=== PATIENT | male | born 1945 | race Caucasian/White ===

== ENCOUNTER 2017-11-04 11:44 | Emergency (ER) | payer OTHER, MEDICARE ==
--- OUTSIDE RECORDS SUMMARY | 2017-11-04 11:46 | XMS REPORT | Clinical Summary ---
:1945 Author Organization [facility] Address [address] [place] [address] Care Team Providers Name Role Phone Antoni Goodman MD Primary Care Provider Allergies No Known Allergies Current Medications Prescription Sig. Disp. Refills Start Date End Date Status metoprolol tartrate Take 1 tablet 90 tablet 3 09/20/2017 09/20/2018 Active (LOPRESSOR) 25 mg (25 mg total) tablet by mouth daily. omeprazole Take 20 mg by Active (PriLOSEC) 20 MG mouth daily. capsule amLODIPine Take 5 mg by Active (NORVASC) 5 mg mouth daily as tablet needed. atorvastatin Take 1 tablet 90 tablet 3 11/02/2017 10/28/2018 Active (LIPITOR) 40 MG (40 mg total) tablet by mouth nightly for 360 days. aspirin (ECOTRIN) Take 1 tablet 30 tablet 0 11/03/2017 12/03/2017 Active 81 MG enteric (81 mg total) coated tablet by mouth daily for 30 days. clopidogrel Take 1 tablet 90 tablet 1 11/03/2017 05/02/2018 Active (PLAVIX) 75 mg (75 mg total) tablet by mouth daily for 180 days. metoprolol tartrate Take 1 tablet 30 tablet 0 03/06/2017 09/20/2017 Discontinued (LOPRESSOR) 25 mg (25 mg total) tablet by mouth daily. simvastatin (ZOCOR) TAKE 1 09/11/2017 Discontinued 20 MG tablet TABLET(S) EVERY DAY BY ORAL ROUTE. Active Problems Problem Noted Date Abnormal stress test 10/30/2017 Essential hypertension 09/22/2017 Abnormal EKG 09/22/2017 Aortic aneurysm without rupture 09/22/2017 Chest pain 09/22/2017 Encounters Date Type Specialty Care Team Description 11/01/2017 - Hospital Encounter Cardiology Antoni Goodman Coronary artery disease involving [place] coronary artery of [place] heart with unstable angina pectoris (Primary Dx); 11/02/2017 MD Yenny Abnormal stress test 11/01/2017 Procedure Pass Procedural Cardiology 11/01/2017 Surgery Procedural Antoni Goodman Cv pci stent-RCA Cardiology MD Yenny 10/30/2017 Lab Lab Antoni Goodman Other chest pain; MD Yenny Abnormal stress test; SOB (shortness of breath); Coronary artery disease involving [place] coronary artery of [place] heart without angina pectoris 10/30/2017 Office Visit Cardiology Antoni Goodman Abnormal stress test ( Primary Dx); MD Yenny Essential hypertension; Other chest pain; SOB (shortness of breath); Coronary artery disease involving [place] coronary artery of [place] heart without angina pectoris; Abdominal aortic aneurysm (AAA) without rupture 10/30/2017 Orders Only Cardiology Basim, Abnormal stress test MONIKA Wallace (Primary Dx) 10/22/2017 Orders Only Cardiology Antoni Goodman MD 10/17/2017 Orders Only Cardiology Crispin, Abdominal aortic aneurysm ( AAA) without rupture (Primary Dx); MONIKA Rahman Abnormal EKG 10/16/2017 Orders Only Cardiology Antoni Goodman Essential hypertension ( Primary Dx); MD Yenny Chest pain, unspecified type 09/20/2017 Refill Cardiology Crispin, Med Refill MONIKA Rahman 09/11/2017 Office Visit Cardiology Antoni Goodman Chest pain, unspecified type (Primary Dx); MD Yenny Essential hypertension; Abnormal EKG; Aortic aneurysm without rupture, unspecified portion of aorta 03/06/2017 Telephone Cardiology Atul Allen MA Med Refill (metoprolol tartrate 25mg) 03/06/2017 Refill Cardiology Atul Allen MA Med Refill after 11/03/2016 Family History Medical History Relation Name Comments No Known Problems Father No Known Problems Mother Relation Name Status Comments Father Mother Social History Tobacco Use Types Packs/Day Years Used Date Former Smoker Smokeless Tobacco: Never Used Comments: quit 10 years a go Alcohol Use Drinks/Week oz/Week Comments No Sex Assigned at Date Recorded Not on file Last Filed Vital Signs Vital Sign Reading Time Taken Blood Pressure 129/73 11/02/2017 2:05 PM CDT Pulse 64 11/02/2017 2:05 PM CDT Temperature 35.7 C (96.2 F) 11/02/2017 7:46 AM CDT Respiratory Rate 20 11/02/2017 4:46 AM CDT Oxygen Saturation 96% 11/02/2017 2:05 PM CDT Inhaled Oxygen Concentration - - Weight 97.6 kg (215 lb 1 oz) 11/02/2017 5:18 AM CDT Height 177.8 cm (5' 10") 11/01/2017 10:02 AM CDT Body Mass Index 30.86 11/02/2017 5:18 AM CDT Plan of Treatment Health Maintenance Due Date Last Done Comments COLONOSCOPY 1993 ZOSTER VACCINE 2003 PNEUMOCOCCAL POLYSACCHARIDE VACCINE AGE 65 AND OVER 01/06/2008 PNEUMOCOCCAL-13 01/06/2008 INFLUENZA VACCINE 02/20/2018 Implants Implanted Type Area Road Grader Operator Device Expiration Model / Identifier Date Serial / Lot Stent Coronary Syst Synergy (Mr) 4.00mm X 12mm - [id number] Coronary N/A: [facility] 06/26/2018 [id number] / Implanted: 11/01/2017 (Quantity not on file) Stents N/A INTERVENTIONAL / CARDIOLOGY [id number] Stent Coronary Syst Synergy (Mr) 3.00mm X 16mm - [id number] Coronary N/A: [facility] 08/27/2018 [id number] / Implanted: 11/01/2017 (Quantity not on file) Stents N/A INTERVENTIONAL / CARDIOLOGY [id number] Procedures Procedure Name Priority Date/Time Associated Comments Diagnosis CONSULT CARDIAC REHAB Routine 11/01/2017 6:32 PHASE 1 PM CDT CV PCI ADDITIONAL Routine 11/01/2017 2:47 Abnormal stress Results for this VESSELS PM CDT test procedure are in the results section. CV PCI STENT Routine 11/01/2017 2:47 Abnormal stress Results for this PM CDT test procedure are in the results section. CV SELECTIVE CORONARY Routine 11/01/2017 2:47 Abnormal stress Results for this ANGIOGRAPHY PM CDT test procedure are in the results section. after 11/03/2016 Results CBC with platelet and differential (11/02/2017 5:00 AM)Only the most recent of2 resultswithin the time period is included. Component Value Ref Range WBC 6.13 4.50 - 11.00 k/uL RBC 4.40 4.40 - 6.00 m/uL HGB 14.1 14.0 - 18.0 g/dL HCT 41.2 41.0 - 51.0 % MCV 93.6 82.0 - 100.0 fL MCH 32.0 27.0 - 34.0 pg MCHC 34.2 31.0 - 37.0 g/dL RDW - SD 42.0 37.0 - 55.0 fL MPV 8.9 8.8 - 13.2 fL Platelet count 250 150 - 400 k/uL Nucleated RBC 0.00 /100 WBC Neutrophils 58.7 39.0 - 69.0 % Lymphocytes 28.7 25.0 - 45.0 % Monocytes 9.3 0.0 - 10.0 % Eosinophils 2.6 0.0 - 5.0 % Basophils 0.5 0.0 - 1.0 % Immature granulocytes 0.2Comment: "Immature granulocytes" 0.0 - 1.0 % (promyelocytes, myelocytes, metamyelocytes) Specimen Performing Laboratory Blood [facility] DEPARTMENT OF PATHOLOGY AND GENOMIC MEDICINE [address] [place] [id number] Estimated GFR (11/02/2017 4:00 AM) Component Value Ref Range GFR Non Af Amer >90 mL/min/1.73 m2 GFR Af Amer >90 mL/min/1.73 m2 Comment: Chronic kidney disease: <60 mL/min/1.73m2 Kidney failure: <15 mL/min/1.73m2 The estimated GFR is calculated from the IDMS-traceable Modification of Diet in Renal Disease Equation. The accuracy of the calculation is poor when the creatinine is normal. Calculated values >90 mL/min/1.73m2 are not reported. This equation has not been validated in children (<18 years), women, the elderly (>70 years), or ethnic groups other than Caucasians and Americans. Specimen Performing Laboratory Plasma specimen [facility] DEPARTMENT OF PATHOLOGY AND [facility] MEDICINE [address] [place] [id number] Basic metabolic panel (11/02/2017 4:00 AM) Component Value Ref Range Sodium 138 135 - 148 mEq/L Potassium 4.6 3.5 - 5.0 mEq/L Chloride 103 98 - 112 mEq/L CO2 23 (L) 24 - 31 mEq/L Anion gap 12 7 - 15 mEq/L Comment: Starting from October , anion gap calculation no longer incorporates potassium. Please note the change. BUN 17 8 - 23 mg/dL Creatinine 0.8 0.7 - 1.2 mg/dL Glucose 109 (H) 65 - 99 mg/dL Calcium 9.5 8.8 - 10.2 mg/dL Specimen Performing Laboratory Plasma specimen [facility] DEPARTMENT OF PATHOLOGY AND GENOMIC MEDICINE [address] [place] [address] Cv hemodialysis lab technician procedure (11/01/2017 2:47 PM) Specimen Performing Laboratory [facility] [address] [place] [address] Narrative Findings: LAD with no obstructive coronary disease LCx with calcified severe stenosis in the mid segment.Large vessel with small aneurysmal segment proximal to the stenosis. RCA diffusely ectatic with significant stenosis in the proximal segment. Procedure Details Attending: Dr. Goodman Interventional Fellow: See Beach MD EQUIPMENT/ANTICOAGULATION: Right Radial Artery 6F Sheath [id number] Catheter Hi-Torque Floppy XS coronary wire Anticoagulation:Angiomax bolus and Infusion with ACT >250 sec prior to procedure PROCEDURAL DETAILS: The RCA was engaged with the [id number] Catheter and a Hi-Torque Floppy XS coronary wire was advanced into the distal PDA. The lesion in the proximal RCA was pre-dilated with a 3.0mm semi-compliant balloon at 12atm and stented with a 4.0x12mm Synergy ALYSSA at 16atm. Final angiography revealed no evidence of dissection or perforation; there was HAYDEE 3 flow and 0% residual stenosis. The AL1 was then placed into the Left main and the Hi-Torque Floppy XS was advanced into the distal OM.The lesion in the mid-circumflex was predilated with a 1.5mm, then 2.0mm semi-compliant balloon at high pressure.The lesion finally yielded and a 3.0x16mm Synergy ALYSSA was deployed at 14atm.Final angiography revealed no evidence of dissection or perforation; there was HAYDEE 3 flow and 0% residual stenosis. HEMOSTASIS: TR Band inflated to 13 ADDITIONAL POST-PROCEDURE MEDICATIONS: Aspirin 324 mg Clopidogrel 600 mg PLAN: 1. ASA 81mg daily 2. Clopidogrel 75mg daily . 3. Cardiac medical therapy and aggressive risk factor modification. Cardiac rehabilitation. 4. Transferred in stable condition Activated clotting time (11/01/2017 1:41 PM) Component Value Ref Range Activated clotting time 377 (H) 96 - 152 sec Comment: Meter ID: [id number] Heavy Duty Truck Mechanic: Alvaro Mendosa Specimen Performing Laboratory [facility] DEPARTMENT OF PATHOLOGY AND GENOMIC MEDICINE [address] [place] [phone] CK-MB (11/01/2017 10:58 AM) Component Value Ref Range CK-MB 6.5 1.0 - 10.4 ng/mL Comment: As of Nov 20 2017, this test will no longer be available in [facility]. Specimen Performing Laboratory Plasma specimen [facility] DEPARTMENT OF PATHOLOGY AND GENOMIC MEDICINE [address] [place] [id number] ECG 12 lead (11/01/2017 10:17 AM)Only the most recent of2 resultswithin the time period is included. Component Value Ref Range Ventricular rate [address] interval 160 QRSD interval 100 QT interval 402 QTC interval 402 P axis 1 16 QRS axis 1 -60 T wave axis -5 EKG impression Normal sinus rhythm-Left anterior fascicular block-Minimal voltage criteria for LVH, may be normal variant-Abnormal ECG-In automated comparison with ECG of 11-SEP-2017 16:09,-No significant change was f ound- Specimen Performing Laboratory [facility] [address] [place] [phone] Partial thromboplastin time, activated (10/30/2017 8:47 AM) Component Value Ref Range aPTT 27 24 - 33 sec Comment: This test has not been validated for monitoring unfractionated heparin therapy. aPTT-based therapeutic ranges for unfractionated heparin therapy have not been established. For general guidelines on Heparin monitoring, refer to the [facility] Directory of Services. Specimen Performing Laboratory Blood [facility] Narrative Performed at: [id number] Knee Bolter: King Pascal MD, Phone:[phone] Prothrombin time with INR (10/30/2017 8:47 AM) Component Value Ref Range INR 1.0 0.8 - 1.2 Comment: Reference interval is for non-anticoagulated patients. Suggested INR therapeutic range for Vitamin K antagonist therapy: Standard Dose (moderate intensity therapeutic range): 2.0 - 3.0 Higher intensity therapeutic range 2.5 - 3.5 Prothrombin time 10.1 9.1 - 12.0 sec Specimen Performing Laboratory Blood [facility] Narrative Performed at:01 - [id number] Knee Bolter: King Pascal MD, Phone:[phone] Comprehensive metabolic panel (10/30/2017 8:47 AM) Component Value Ref Range Glucose 115 (H) 65 - 99 mg/dL BUN, whole blood 17 8 - 27 mg/dL Creatinine 0.79 0.76 - 1.27 mg/dL EGFR Non-Afr. Bahamian 88 >59 mL/min/1.73 EGFR 102 >59 mL/min/1.73 BUN/creatinine ratio 22 10 - 24 Sodium 141 134 - 144 mmol/L Potassium 5.0 3.5 - 5.2 mmol/L Chloride 98 96 - 106 mmol/L CO2 29 18 - 29 mmol/L Calcium 10.2 8.6 - 10.2 mg/dL Protein 7.4 6.0 - 8.5 g/dL Albumin, S 4.7 3.5 - 4.8 g/dL Globulin, total 2.7 1.5 - 4.5 g/dL Albumin/globulin ratio 1.7 1.2 - 2.2 Total bilirubin 0.5 0.0 - 1.2 mg/dL Alkaline phosphatase 76 39 - 117 IU/L AST 19 0 - 40 IU/L ALT 22 0 - 44 IU/L Specimen Performing Laboratory Blood [facility] Narrative Performed at: [id number] Knee Bolter: King Pascal MD, Phone:[phone] Nm myocardial perfusion (10/22/2017)after 11/03/2016 Insurance Payer Benefit Plan / Group Subscriber ID Type Phone Address MEDICARE MEDICARE PART A AND B xxxxxxxxxx Medicare [place], [place] AARP AARP SUPPLEMENT xxxxxxxxx-xx Commercial [phone] [place], [place] [phone]
[2017-11-04] MEDS ORDERED: ASPIRIN 81 MG CHEWABLE TABLET ONE (12:21)
[2017-11-04] MEDS ORDERED: NITROGLYCERIN 0.4 MG/TAB SL ONE (12:22)
[2017-11-04] MEDS ORDERED: NA CHLORIDE 0.9% 1,000 ML ONE (12:22)
[2017-11-04 12:39] LABS: Absolute Lymphocytes (CBC) 1.7 K/uL (0.7-4.9); Absolute Monocytes 0.5 K/uL (0.1-1.3); Eosinophils % 2.2 % (0-4.4); Hematocrit 43.2 % (39.6-49.0); Lymphocytes % 31.2 % (15.3-44.8); MCH 32.2 pg (27.0-35.0); MCV 94.4 fL (80-100); MPV 7.2 fL (7.6-11.3); Monocytes % 9.5 % (3.3-12.3); RBC Red Blood Cell Count 4.58 M/uL (4.33-5.43)
[2017-11-04 12:46] LABS: Protime INR 0.97
[2017-11-04 12:54] LABS: Bicarbonate 26 mEq/L (21-31); Glucose Level 143 mg/dL (65-120); Lipase 24 U/L (22-51); Potassium 3.5 mEq/L (3.6-5.0); Sodium Level 138 mEq/L (135-145)
[2017-11-04 13:00] LABS: ALT/SGPT 21 IU/L (10-60); AST/SGOT 23 IU/L (10-42); Albumin 4.2 g/dL (3.2-5.5); Alkaline Phosphatase 70 IU/L (42-121); BUN Blood Urea Nitrogen 15 mg/dL (6-20); Bilirubin Direct < 0.1 mg/dL (0-0.2); Bilirubin Total 0.5 mg/dL (0.3-1.2); Creatine Phosphokinase 88 IU/L (22-269); Magnesium 1.9 mg/dL (1.8-2.5); Protein, Total 7.6 g/dL (6.0-8.3)
[2017-11-04 13:03] LABS: CKMB Creatine Kinase MB 3.6 ng/ml (0.3-4.0)
--- NOTE | 2017-11-04 13:40 | RAD REPORT ---
EXAM DESCRIPTION: RAD - Chest Single View - 11/04/2017 1:26 pm CLINICAL HISTORY: Chest pain COMPARISON: None. TECHNIQUE: AP portable chest image was obtained 1312 hours . FINDINGS: Lungs are clear. Heart and vasculature are normal. No measurable pleural effusion and no p neumothorax. No gross bony abnormality seen. No acute aortic findings suspected. IMPRESSION: No acute cardiopulmonary process.
[2017-11-04 14:07] LABS: Urine Blood NEGATIVE (NEG); Urine Glucose NEGATIVE (NEG); Urine Protein NEGATIVE (NEG); Urine Specific Gravity 1.015 (1.005-1.030); Urine pH 7.5 (5.0-7.0)
--- NOTE | 2017-11-04 15:08 | ER ---
Nurse's Notes [facility] Name: Louie Lebron Age: 72 yrs Sex: Male : 1945 Arrival Date: 11/04/2017 Time: 11:47 Bed 5 Private MD: Diagnosis: Angina pectoris, unspecified Presentation: 11/04 11:48 Presenting complaint: Patient states: i had chest pain that started yesterday, S/P hj stent placement at [facility] last November 01, reports burning/ pressure like pain on the chest and L side of the chest; denies SOB;. Transition of care: patient was not received from another setting of care. Onset of symptoms was November 04, 2017. Care prior to arrival: None. 11:48 Method Of Arrival: Ambulatory 11:48 Acuity: MARIBEL 3 hj Triage Assessment: 11:51 General: Appears in no apparent distress. uncomfortable, Behavior is calm, cooperative, hj appropriate for age. Pain: Complains of pain in chest. Pain: Pain currently is 5 out of 10 on a pain scale. Cardiovascular: Capillary refill < 3 seconds Patient's skin is warm and dry. Historical: - Allergies: 11:51 No Known Allergies; hj - Home Meds: 11:51 Prilosec Oral [Active]; Plavix 75 mg Oral tab 1 tab once daily [Active]; atorvastatin hj 40 mg oral tab 1 tab once daily [Active]; amlodipine 10 mg tab 1 tab once daily [Active]; aspirin 81 mg Oral TbEC 1 tab once daily [Active]; - PMHx: 11:51 Aneurysm; Tachycardia; hj - PSHx: 11:51 Cholecystectomy; heart stent; hj - Immunization history:: Adult Immunizations up to date. - Social history:: Smoking status: Patient/guardian denies using tobacco. Screenin:00 Abuse screen: Denies threats or abuse. Denies injuries from another. Nutritional jl7 screening: No deficits noted. Tuberculosis screening: No symptoms or risk factors identified. Fall Risk IV access (20 points). Total Quinonez Fall Scale indicates No Risk (0-24 pts). Assessment: 11:52 Pain: Pain does not radiate. Pain began 1 day ago. hj 12:00 General: Appears in no apparent distress. uncomfortable, Behavior is calm, cooperative, jl7 appropriate for age. Pain: Complains of pain in chest Pain does not radiate. Pain currently is 5 out of 10 on a pain scale. Quality of pain is described as pressure, Pain began 1 day ago. Is continuous. Neuro: Level of Consciousness is awake, alert, obeys commands, Oriented to person, place, time, situation. Cardiovascular: Heart tones S1 S2 present Murmur present Patient's skin is warm and dry. Respiratory: Airway is patent Respiratory effort is even, unlabored, Respiratory pattern is regular, symmetrical, Breath sounds are clear bilaterally. GI: No signs and/or symptoms were reported involving the gastrointestinal system. : No signs and/or symptoms were reported regarding the genitourinary system. EENT: No signs and/or symptoms were reported regarding the EENT system. Derm: Skin is pink, warm \T\ dry. Musculoskeletal: No signs and/or symptoms reported regarding the musculoskeletal system. 13:00 Reassessment: Patient and/or family updated on plan of care and expected duration. Pain jl7 level reassessed. Patient is alert, oriented x 3, equal unlabored respirations, skin warm/dry/pink. Patient states feeling better. Patient states symptoms have improved. 13:16 Reassessment: KENNETH Nieves and Dr. Bourgeois notified of critical lab value Troponin ss 0.47. 13:20 Reassessment: Provider at bedside discussing plan of care. jl7 14:30 Reassessment: Patient and/or family updated on plan of care and expected duration. Pain jl7 level reassessed. Patient is alert, oriented x 3, equal unlabored respirations, skin warm/dry/pink. Patient denies pain at this time. 15:26 Reassessment: No changes from previously documented assessment. Patient and/or family jl7 updated on plan of care and expected duration. Pain level reassessed. Patient is alert, oriented x 3, equal unlabored respirations, skin warm/dry/pink. Vital Signs: 11:52 BP 168 / 83; Pulse 64; Resp 18; Temp 97.8(O); Pulse Ox 100% on R/A; Weight 96.62 kg; hj Height 5 ft. 10 in. (177.80 cm); Pain 5/10; 12:00 BP 163 / 73; Pulse 62; Resp 16 S; Pulse Ox 97% on R/A; Pain 5/10; jl7 12:15 BP 121 / 60; Pulse 58; Resp 18; Pulse Ox 96% on R/A; jl7 12:26 BP 127 / 73; Pulse 68; Resp 16 S; Pulse Ox 95% on R/A; jl7 12:50 BP 135 / 84; Pulse 63; Resp 16 S; Pulse Ox 98% on R/A; jl7 13:27 BP 136 / 82; Pulse 55; Resp 16 S; Pulse Ox 98% on R/A; jl7 14:04 BP 151 / 76; Pulse 54; Resp 16 S; Pulse Ox 98% on R/A; jl7 15:00 BP 164 / 77; Pulse 56; Resp 18 S; Pulse Ox 98% on R/A; jl7 11:52 Body Mass Index 30.56 (96.62 kg, 177.80 cm) ED Course: 11:47 Patient arrived in ED. tw3 11:50 Triage completed. 11:52 Arm band placed on left wrist. 11:52 Patient maintains SpO2 saturation greater than 95% on room air. 11:58 Reta Drew RN is Primary Nurse. jl7 11:59 Brijesh Billy PA is PHCP. 11:59 Shaheen Bourgeois MD is Attending Physician. cp 12:00 Patient has correct armband on for positive identification. Placed in gown. Bed in low jl7 position. Call light in reach. Side rails up X 1. ekg monitor on. Pulse ox on. NIBP on. 12:00 Initial lab(s) drawn, by wa, sent to lab. Inserted saline lock: 20 gauge in right jl7 antecubital area, using aseptic technique. Blood collected. 13:14 X-ray completed. Portable x-ray completed in exam room. Patient tolerated procedure la2 well. 13:17 XRAY Chest (1 view) In Process Unspecified. EDMS 15:46 No provider procedures requiring assistance completed. Patient transferred, IV remains jl7 in place. Administered Medications: 12:21 Drug: Aspirin Chewable Tablet 324 mg Route: PO; jl7 13:00 Follow up: Response: No adverse reaction; Pain is decreased jl7 12:22 Drug: NS 0.9% 1000 ml Route: IV; Rate: 100 ml/hr; Site: right antecubital; jl7 15:47 Follow up: Response: No adverse reaction jl7 12:23 Drug: Nitroglycerin 0.4 mg Route: Sublingual; jl7 13:00 Follow up: Response: No adverse reaction; Pain is decreased jl7 Outcome: 15:07 ER care complete, transfer ordered by MD. jim 15:46 Transferred by ground EMS to [facility], Transfer form completed. X-rays jl7 sent w/ patient. 15:46 Condition: stable 15:46 Discharge instructions given to patient, family, Instructed on the need for transfer, Demonstrated understanding of instructions. 15:47 Patient left the ED. jl7 Signatures: Dispatcher [employer] EDHali Roa RN RN Blake Montero RN RN Brijesh Camacho PA PA cp Leal, Jahala RN RN jl7 Nikki Brumfield 3 Amber Encarnacion Corrections: (The following items were deleted from the chart) 11:54 11:52 Pulse 64bpm; Resp 18bpm; Pulse Ox 100% RA; Temp 97.8F Oral; 96.62 kg; Height 5 hj ft. 10 in.; BMI: 30.5; Pain 5/10; hj
--- NOTE | 2017-11-04 15:08 | EDPHYS ---
Physician Documentation [facility] Name: Louie Lebron Age: 72 yrs Sex: Male : 1945 Arrival Date: 11/04/2017 Time: 11:47 Bed 5 Private MD: ED Physician Shaheen Bourgeois HPI: 11/04 12:14 This 72 yrs old Male presents to ER via Ambulatory with complaints of Chest cp Pain, High Blood Pressure. 12:14 The patient or guardian reports chest pain that is located primarily in the anterior cp chest wall. 12:14 Onset: yesterday. The pain radiates to neck. Associated signs and symptoms: Pertinent cp negatives: cough, diaphoresis, headache, lower extremity pain, lower extremity swelling, lightheadedness, near syncope, palpitations, shortness of breath, syncope. The chest pain is described as a heaviness. Duration: The patient or guardian reports multiple episodes, that are intermittent. 12:14 Patient reports history of cardiac stent placement times [address] \T\ [facility] in [place] by DR Franklin this past , 3 days ago w/o complication. Historical: - Allergies: 11:51 No Known Allergies; hj - Home Meds: 11:51 Prilosec Oral [Active]; Plavix 75 mg Oral tab 1 tab once daily [Active]; atorvastatin hj 40 mg oral tab 1 tab once daily [Active]; amlodipine 10 mg tab 1 tab once daily [Active]; aspirin 81 mg Oral TbEC 1 tab once daily [Active]; - PMHx: 11:51 Aneurysm; Tachycardia; hj - PSHx: 11:51 Cholecystectomy; heart stent; hj - Immunization history:: Adult Immunizations up to date. - Social history:: Smoking status: Patient/guardian denies using tobacco. ROS: 12:20 Constitutional: Negative for body aches, chills, fever, poor PO intake. cp 12:20 Eyes: Negative for injury, pain, redness, and discharge. cp 12:20 Neck: Negative for pain with movement, pain at rest, stiffness, tenderness. 12:20 Cardiovascular: Positive for chest pain, Negative for edema, palpitations. 12:20 Respiratory: Negative for cough, shortness of breath, wheezing. 12:20 Abdomen/GI: Negative for abdominal pain, nausea, vomiting, diarrhea, constipation, anorexia, black/tarry stool, rectal bleeding. 12:20 Back: Negative for radiated pain. 12:20 Neuro: Negative for altered mental status, dizziness, headache, syncope, near syncope, weakness. 12:20 All other systems are negative. Exam: 12:10 ECG was reviewed by the Attending Physician. cp 12:25 Constitutional: The patient appears in no acute distress, alert, awake, cp non-diaphoretic, non-toxic, well developed, well nourished. 12:25 Head/Face: Normocephalic, atraumatic. Eyes: Pupils equal round and reactive to light, cp extra-ocular motions intact. Lids and lashes normal. Conjunctiva and sclera are non-icteric and not injected. Cornea within normal limits. Periorbital areas with no swelling, redness, or edema. ENT: Nares patent. No nasal discharge, no septal abnormalities noted. Tympanic membranes are normal and external auditory canals are clear. Oropharynx with no redness, swelling, or masses, exudates, or evidence of obstruction, uvula midline. Mucous membranes moist. Neck: Trachea midline, no thyromegaly or masses palpated, and no cervical lymphadenopathy. Supple, full range of motion without nuchal rigidity, or vertebral point tenderness. No Meningismus. Chest/axilla: Normal chest wall appearance and motion. Nontender with no deformity. No lesions are appreciated. 12:25 Cardiovascular: Rate: bradycardic, Rhythm: regular, Pulses: Pulses are 2+ in right radial artery and left radial artery. Heart sounds: murmur, not appreciated, rub, not appreciated, gallop, not appreciated, Edema: is not appreciated, JVD: is not appreciated. 12:25 Respiratory: the patient does not display signs of respiratory distress, Respirations: normal, no use of accessory muscles, no retractions, no splinting, no tachypnea, labored breathing, is not present, Breath sounds: are clear throughout, no decreased breath sounds, no stridor, no wheezing. 12:25 Abdomen/GI: Inspection: abdomen appears normal, Bowel sounds: active, all quadrants, Palpation: abdomen is soft and non-tender, in all quadrants, rebound tenderness, is not appreciated, voluntary guarding, is not appreciated, involuntary guarding, is not appreciated. 12:25 Back: pain, is absent, ROM is normal. 12:25 Skin: cellulitis, is not appreciated, no rash present. 12:25 Neuro: Orientation: to person, place \T\ time. Mentation: is normal, Cerebellar function: is grossly normal, Motor: moves all fours, strength is normal, Sensation: no obvious gross deficits. Vital Signs: 11:52 BP 168 / 83; Pulse 64; Resp 18; Temp 97.8(O); Pulse Ox 100% on R/A; Weight 96.62 kg; hj Height 5 ft. 10 in. (177.80 cm); Pain 5/10; 12:00 BP 163 / 73; Pulse 62; Resp 16 S; Pulse Ox 97% on R/A; Pain 5/10; jl7 12:15 BP 121 / 60; Pulse 58; Resp 18; Pulse Ox 96% on R/A; jl7 12:26 BP 127 / 73; Pulse 68; Resp 16 S; Pulse Ox 95% on R/A; jl7 12:50 BP 135 / 84; Pulse 63; Resp 16 S; Pulse Ox 98% on R/A; jl7 13:27 BP 136 / 82; Pulse 55; Resp 16 S; Pulse Ox 98% on R/A; jl7 14:04 BP 151 / 76; Pulse 54; Resp 16 S; Pulse Ox 98% on R/A; jl7 15:00 BP 164 / 77; Pulse 56; Resp 18 S; Pulse Ox 98% on R/A; jl7 11:52 Body Mass Index 30.56 (96.62 kg, 177.80 cm) MDM: 12:00 Patient medically screened. cp 12:35 Differential diagnosis: abnormal EKG, acute myocardial infarction, acute pericarditis, cp chest wall pain, cholecystitis, Cholelithiasis costochondritis, esophagitis, gastritis, pancreatitis, peptic ulcer disease, pericarditis, pleurisy, pneumonia, pneumothorax, pulmonary embolus, stable angina, thoracic aortic disection, unstable angina. 14:10 The patient was given aspirin in the Emergency Department. cp 14:10 Data reviewed: vital signs, nurses notes, lab test result(s), EKG, radiologic studies, cp plain films. 14:10 Test interpretation: by ED physician or midlevel provider: ECG, plain radiologic cp studies. 14:10 Counseling: I had a detailed discussion with the patient and/or guardian regarding: the cp historical points, exam findings, and any diagnostic results supporting the discharge/admit diagnosis, the presence of at least one elevated blood pressure reading (>120/80) during this emergency department visit, lab results, radiology results, the need to transfer to another facility, to [facility] in [place] for continuation of care. 14:20 Physician consultation: DR Lezama, on-call commercial cleaner for DR Franklin \T\hernán Kaur requests transfer to medicine for continued monitoring. 11/04 12:31 Order name: Basic Metabolic Panel; Complete Time: 13:13 EDMS 11/04 13:13 Interpretation: Normal except: K 3.5; GLUC 143. 11/04 12:31 Order name: Liver (Hepatic) Function; Complete Time: 13:13 EDMS 11/04 12:31 Order name: Creatine Phosphokinase; Complete Time: 13:13 EDMS 11/04 12:04 Order name: XRAY Chest (1 view); Complete Time: 14:07 11/04 12:04 Order name: EKG; Complete Time: 12:34 11/04 12:04 Order name: Cardiac monitoring; Complete Time: 12:20 11/04 12:04 Order name: EKG - Nurse/Tech; Complete Time: 12:20 11/04 12:31 Order name: CKMB Creatine Kinase MB; Complete Time: 13:13 EDMS 11/04 12:31 Order name: Magnesium; Complete Time: 13:13 EDMS 11/04 12:31 Order name: Lipase; Complete Time: 13:13 EDMS 11/04 12:31 Order name: BNP B-Type Natriuretic Peptide; Complete Time: 13:13 EDMS 11/04 12:31 Order name: Troponin (Emerg Dept Use Only); Complete Time: 13:18 EDMS 11/04 13:18 Interpretation: Abnormal: TROPED 0.47. 11/04 12:31 Order name: CBC with Automated Diff; Complete Time: 13:13 EDMS 11/04 13:14 Interpretation: Normal except: MPV 7.2. 11/04 12:31 Order name: Protime (+INR); Complete Time: 13:13 EDMS 11/04 12:31 Order name: PTT, Activated Partial Thromb; Complete Time: 13:13 EDMS 11/04 13:55 Order name: Urine Dipstick--Ancillary (enter results); Complete Time: 14:32 ag 11/04 12:04 Order name: IV Saline Lock; Complete Time: 12:20 cp 11/04 12:04 Order name: Labs collected and sent; Complete Time: 12:20 cp 11/04 12:04 Order name: O2 Per Protocol; Complete Time: 12:19 cp 11/04 12:04 Order name: O2 Sat Monitoring; Complete Time: 12:19 cp EC:10 Rate is 64 beats/min. Rhythm is regular. MT interval is normal. QRS interval is cp prolonged at 102 msec. QT interval is normal. No ST changes noted. Interpreted by me. Reviewed by me. Administered Medications: 12:21 Drug: Aspirin Chewable Tablet 324 mg Route: PO; jl7 13:00 Follow up: Response: No adverse reaction; Pain is decreased jl7 12:22 Drug: NS 0.9% 1000 ml Route: IV; Rate: 100 ml/hr; Site: right antecubital; jl7 15:47 Follow up: Response: No adverse reaction jl7 12:23 Drug: Nitroglycerin 0.4 mg Route: Sublingual; jl7 13:00 Follow up: Response: No adverse reaction; Pain is decreased jl7 Disposition: 16:25 Co-signature as Attending Physician, Shaheen Bourgeois MD I agree with the assessment and kdr plan of care. Disposition: 11/04/17 15:07 Transfer ordered to [facility]. Diagnosis is Angina pectoris, unspecified. - Reason for transfer: Higher level of care. - Accepting physician is DR Watson. - Condition is Stable. - Problem is new. - Symptoms have improved. Signatures: Dispatcher [employer] EDShaheen Mcgraw MD MD [facility] Blake Dorman RN RN Brijesh Camacho PA PA cp Leal, Jahala, RN RN jl7 Corrections: (The following items were deleted from the chart) 13:17 12:34 BASIC METABOLIC PANEL+C.LAB.BRZ ordered. EDMS EDMS 13:17 12:34 CKMB+C.LAB.BRZ ordered. EDMS EDMS 13:17 12:34 CREATINE PHOSPHOKINASE+C.LAB.BRZ ordered. EDMS EDMS 13:17 12:34 HEPATIC FUNCTION+C.LAB.BRZ ordered. EDMS EDMS 13:17 12:34 MAGNESIUM+C.LAB.BRZ ordered. EDMS EDMS 13:17 12:34 PROTIME (+INR)+COAG.LAB.BRZ ordered. EDMS EDMS 13:17 12:34 PTT, ACTIVATED+COAG.LAB.BRZ ordered. EDMS EDMS 13:17 12:34 LIPASE+C.LAB.BRZ ordered. EDMS EDMS 13:18 12:34 BNP+C.LAB.BRZ ordered. EDMS EDMS 13:18 12:34 CBC+H.LAB.BRZ ordered. EDMS EDMS 13:18 12:34 TROPONIN (EMERG DEPT USE ONLY)+C.LAB.BRZ ordered. EDVA EDMS 11/05 09:10 11/04 14:10 Counseling: I had a detailed discussion with the patient and/or guardian cp regarding: the historical points, exam findings, and any diagnostic results supporting the discharge/admit diagnosis, the presence of at least one elevated blood pressure reading (>120/80) during this emergency department visit, lab results, radiology results, the need to transfer to another facility, [facility] for continuation of care, cp
--- NOTE | 2017-11-04 22:30 | EKG ---
Test Date: 2017-11-04 Test Time: 12:04:08 [employer]: ESTELLE MEASUREMENT RESULTS: Intervals: Rate: 64 ID: [id number] QRSD: 102 QT: 360 QTc: 371 [place]: P: 25 ID: [id number] QRS: -62 T: 3 INTERPRETIVE STATEMENTS: Normal sinus rhythm Left axis deviation Moderate voltage criteria for LVH, may be normal variant Abnormal ECG Compared to ECG 08/19/2003 07:02:00 Left ventricular hypertrophy now present Sinus bradycardia no longer present Electronically Signed On 11-04-17 22:29:53 CDT by Ash Carmen
== END 2017-11-04 15:47 | disposition short-term general hospital (02) ==
LOC: ER 11:44
DX: I20.9 Angina pectoris, unspecified (principal); Z79.01 Long term (current) use of anticoagulants; Z79.82 Long term (current) use of aspirin; Z95.818 Presence of other cardiac implants and grafts
CPT/HCPCS: 36415; 71045; 80048; 80076; 81003; 82550; 82553; 83690; 83735; 83880; 84484; 85025; 85610; 85730; 93005; 99285; J7030

== ENCOUNTER 2018-09-15 08:01 | Emergency (ER) | payer OTHER, MEDICARE ==
--- OUTSIDE RECORDS SUMMARY | 2018-09-15 08:04 | XMS REPORT | Clinical Summary ---
:1945 Author Organization [facility] Address [address] [place] [address] Care Team Providers Name Role Phone Asim Bhakta MD Primary Care Provider Allergies No Known Allergies Medications Medication Sig Dispensed Refills Start Date End Date Status atorvastatin Take 1 tablet 90 tablet 3 11/02/2017 10/28/2018 Active (LIPITOR) 40 MG (40 mg total) tablet by mouth nightly for 360 days. lisinopril Take 1 tablet 30 tablet 3 11/06/2017 Active (PRINIVIL,ZESTRIL) (10 mg total) 10 mg tablet by mouth daily for 30 days. aspirin (ECOTRIN) 81 Take 1 tablet 30 tablet 1 Active MG enteric coated (81 mg total) tablet by mouth daily. clopidogrel (PLAVIX) Take 1 tablet 90 tablet 3 05/07/2018 05/07/2019 Active 75 mg tablet (75 mg total) by mouth daily. metoprolol tartrate TAKE 1 TABLET 90 tablet 3 09/11/2018 09/11/2019 Active (LOPRESSOR) 25 mg (25 MG TOTAL) tablet BY MOUTH DAILY. metoprolol tartrate Take 1 tablet 30 tablet 0 03/06/2017 09/20/2017 Discontinued (LOPRESSOR) 25 mg (25 mg total) tablet by mouth daily. metoprolol tartrate Take 1 tablet 90 tablet 3 09/20/2017 09/11/2018 Discontinued (LOPRESSOR) 25 mg (25 mg total) tablet by mouth daily. omeprazole Take 20 mg by 0 11/06/2017 Discontinued (PriLOSEC) 20 MG mouth daily. capsule amLODIPine (NORVASC) Take 5 mg by 0 11/06/2017 Discontinued 5 mg tablet mouth daily as needed. aspirin (ECOTRIN) 81 Take 1 tablet 30 tablet 0 11/03/2017 12/03/2017 MG enteric coated (81 mg total) tablet by mouth daily for 30 days. clopidogrel (PLAVIX) Take 1 tablet 90 tablet 1 11/03/2017 05/02/2018 75 mg tablet (75 mg total) by mouth daily for 180 days. amLODIPine (NORVASC) Take 1 tablet 30 tablet 0 11/06/2017 12/06/2017 10 mg tablet (10 mg total) by mouth daily for [address] 1 90 tablet 2 11/06/2017 12/06/2017 (NITROSTAT) 0.4 MG tablet (0.4 SL tablet mg total) under the tongue every 5 (five) minutes as needed for chest pain for up to 30 days. pantoprazole Take 1 tablet 60 tablet 2 11/06/2017 12/06/2017 (PROTONIX) 40 MG EC (40 mg total) tablet by mouth 2 (two) times a day for 30 days. Active Problems Problem Noted Date Stented coronary artery 11/20/2017 Coronary artery disease involving [place] coronary artery of [place] heart 11/19 without angina pectoris Hyperlipidemia 11/04/2017 Abnormal stress test 10/30/2017 Essential hypertension 09/22/2017 Abnormal EKG 09/22/2017 Aortic aneurysm without rupture 09/22/2017 Chest pain 09/22/2017 Encounters Date Type Specialty Care Team Description 09/11/2018 Refill Cardiology Asim Bhakta MD 05/28/2018 Office Visit Cardiology Asim Bhakta Coronary artery disease involving [place] coronary artery of [place] heart without angina pectoris ( Primary Dx); MD Yenny Other hyperlipidemia; Stented coronary artery; Abdominal aortic aneurysm (AAA) without rupture (HCC) 05/07/2018 Refill Cardiology Basim Med Refill Madison, MONIKA 05/07/2018 Refill Cardiology Basim Med Refill Madison, MONIKA 04/28/2018 Refill Cardiology See Beach MD 12/14/2017 Refill Cardiology See Beach MD 12/14/2017 Refill Cardiology Luther Frausto Med Refill [place] 12/02/2017 Refill Internal Medicine Thor Marmolejo MD 11/19/2017 Office Visit Cardiology Asim Bhakta Coronary artery disease involving [place] coronary artery of [place] heart without angina pectoris ( Primary Dx); MD Yenny Essential hypertension; Abdominal aortic aneurysm (AAA) without rupture; Stented coronary artery 11/04/2017 - Hospital Encounter Cardiology Meme Ty, Other chest pain 11/06/2017 (Primary Dx) 11/02/2017 Patient Outreach Quality Yohana Coleman RN 11/01/2017 Surgery Procedural Asim Bhakta Cv pci stent-RCA Cardiology MD Yenny 11/01/2017 - Hospital Encounter Cardiology Asim Bhakta Coronary artery disease involving [place] coronary artery of [place] heart with unstable angina pectoris (Primary Dx); 11/02/2017 MD Yenny Abnormal stress test 10/30/2017 Lab Lab Asim Bhakta Other chest pain; MD Yenny Abnormal stress test; SOB (shortness of breath); Coronary artery disease involving [place] coronary artery of [place] heart without angina pectoris 10/30/2017 Office Visit Cardiology Asim Bhakta Abnormal stress test ( Primary Dx); MD Yenny Essential hypertension; Other chest pain; SOB (shortness of breath); Coronary artery disease involving [place] coronary artery of [place] heart without angina pectoris; Abdominal aortic aneurysm (AAA) without rupture 10/30/2017 Orders Only Cardiology Basim, Abnormal stress test MONIKA Wallace (Primary Dx) 10/22/2017 Orders Only Cardiology Asim Bhakta MD 10/17/2017 Orders Only Cardiology Crispin, Abdominal aortic aneurysm ( AAA) without rupture (Primary Dx); MONIKA Rahman Abnormal EKG 10/16/2017 Orders Only Cardiology Asim Bhakta Essential hypertension ( Primary Dx); MD Yenny Chest pain, unspecified type 09/20/2017 Refill Cardiology Crispin, Med Refill MONIKA Rahman after 09/14/2017 Family History Medical History Relation Name Comments No Known Problems Father No Known Problems Mother Relation Name Status Comments Father Mother Social History Tobacco Use Types Packs/Day Years Used Date Former Smoker Smokeless Tobacco: Never Used Comments: quit 10 years a go Alcohol Use Drinks/Week oz/Week Comments No Sex Assigned at Date Recorded Not on file Job Start Date Occupation Industry Not on file Not on file Not on file Travel History Travel Start Travel End No recent travel history available. Last Filed Vital Signs Vital Sign Reading Time Taken Blood Pressure 145/79 05/28/2018 9:54 AM PROGRAM DIRECTOR/MUSIC DIRECTOR Pulse 62 05/28/2018 9:54 AM PROGRAM DIRECTOR/MUSIC DIRECTOR Temperature 36.2 C (97.1 F) 11/06/2017 11:50 AM CDT Respiratory Rate 18 11/06/2017 11:50 AM CDT Oxygen Saturation 98% 11/06/2017 11:50 AM CDT Inhaled Oxygen Concentration - - Weight 105 kg (231 lb) 05/28/2018 9:54 AM PROGRAM DIRECTOR/MUSIC DIRECTOR Height 177.8 cm (5' 10") 05/28/2018 9:54 AM PROGRAM DIRECTOR/MUSIC DIRECTOR Body Mass Index 33.15 05/28/2018 9:54 AM PROGRAM DIRECTOR/MUSIC DIRECTOR Plan of Treatment Date Type Specialty Care Team Description 11/26/2018 Office Visit Cardiology Asim Bhakta MD [address] [facility] [address] [place] [id number] Health Maintenance Due Date Last Done Comments COLON CANCER SCREENING 1993 SHINGLES VACCINES (#1) 1993 65+ PNEUMOCOCCAL VACCINE (1 of 2 - PCV13) 01/06/2008 PNEUMOCOCCAL POLYSACCHARIDE VACCINE AGE 65 AND OVER 01/06/2008 INFLUENZA VACCINE 02/20/2018 Implants Implanted Type Area Information Security Specialist Device Shelf Model / Identifier Expiration Serial / Date Lot Stent Coronary Syst Synergy (Mr) 4.00mm X 12mm - [id number] Coronary N/A: BSC 06/26/2018 [id number] / Implanted: 11/01/2017 (Quantity not on file) Stents N/A INTERVENTIONAL / CARDIOLOGY [id number] Stent Coronary Syst Synergy (Mr) 3.00mm X 16mm - [id number] Coronary N/A: BSC 08/27/2018 [id number] / Implanted: 11/01/2017 (Quantity not on file) Stents N/A INTERVENTIONAL / CARDIOLOGY [id number] Procedures Procedure Name Priority Date/Time Associated Comments Diagnosis ZZESTIMATED GFR Routine 11/06/2017 5:56 Results for this AM CDT procedure are in the results section. PHOSPHORUS LEVEL Routine 11/06/2017 5:56 Results for this AM CDT procedure are in the results section. MAGNESIUM LEVEL Routine 11/06/2017 5:56 Results for this AM CDT procedure are in the results section. BASIC METABOLIC PANEL Routine 11/06/2017 5:56 Results for this AM CDT procedure are in the results section. HC COMPLETE BLD COUNT Routine 11/06/2017 5:56 Results for this W/AUTO DIFF AM CDT procedure are in the results section. ECHOCARDIOGRAM 2D Routine 11/05/2017 3:49 Results for this COMPLETE W MMODE PM CDT procedure are in SPECTRAL COLOR DOPPLER the results (47619) section. ECG 12-LEAD STAT 11/05/2017 10:13 Results for this AM CDT procedure are in the results section. TROPONIN Routine 11/05/2017 2:16 Results for this AM CDT procedure are in the results section. ZZESTIMATED GFR Routine 11/05/2017 2:16 Results for this AM CDT procedure are in the results section. PHOSPHORUS LEVEL Routine 11/05/2017 2:16 Results for this AM CDT procedure are in the results section. MAGNESIUM LEVEL Routine 11/05/2017 2:16 Results for this AM CDT procedure are in the results section. COMPREHENSIVE METABOLIC Routine 11/05/2017 2:16 Results for this PANEL AM CDT procedure are in the results section. B NATRIURETIC PEPTIDE Routine 11/05/2017 1:49 Results for this AM CDT procedure are in the results section. TYPE AND SCREEN Routine 11/05/2017 1:49 Results for this AM CDT procedure are in the results section. PROTHROMBIN TIME WITH Routine 11/05/2017 1:49 Results for this INR AM CDT procedure are in the results section. HC COMPLETE BLD COUNT Routine 11/05/2017 1:49 Results for this W/AUTO DIFF AM CDT procedure are in the results section. ECG 12-LEAD Routine 11/04/2017 6:47 Results for this PM CDT procedure are in the results section. HC COMPLETE BLD COUNT Timed 11/04/2017 6:45 Results for this W/AUTO DIFF PM CDT procedure are in the results section. ZZESTIMATED GFR Timed 11/04/2017 6:17 Results for this PM CDT procedure are in the results section. TROPONIN Timed 11/04/2017 6:17 Results for this PM CDT procedure are in the results section. COMPREHENSIVE METABOLIC Timed 11/04/2017 6:17 Results for this PANEL PM CDT procedure are in the results section. XR CHEST 1 VW PORTABLE Routine 11/04/2017 6:15 Results for this PM CDT procedure are in the results section. HC COMPLETE BLD COUNT Routine 11/02/2017 5:00 Results for this W/AUTO DIFF AM CDT procedure are in the results section. ZZESTIMATED GFR Routine 11/02/2017 4:00 Results for this AM CDT procedure are in the results section. BASIC METABOLIC PANEL Routine 11/02/2017 4:00 Results for this AM CDT procedure are in the results section. CONSULT CARDIAC REHAB Routine 11/01/2017 6:32 PHASE 1 PM CDT ECG PRE/POST OP STAT 11/01/2017 3:13 Results for this PM CDT procedure are in the results section. ZZ PCI ADDITIONAL Routine 11/01/2017 2:47 Abnormal stress Results for this VESSELS PM CDT test procedure are in the results section. CV PCI STENT Routine 11/01/2017 2:47 Abnormal stress Results for this PM CDT test procedure are in the results section. CV SELECTIVE CORONARY Routine 11/01/2017 2:47 Abnormal stress Results for this ANGIOGRAPHY PM CDT test procedure are in the results section. ACTIVATED CLOTTING TIME Routine 11/01/2017 1:41 Results for this PM CDT procedure are in the results section. CK-MB STAT 11/01/2017 10:58 Results for this AM CDT procedure are in the results section. ECG 12-LEAD STAT 11/01/2017 10:17 Results for this AM CDT procedure are in the results section. PARTIAL THROMBOPLASTIN STAT 10/30/2017 8:47 Other chest pain Results for this TIME (PTT) AM CDT Abnormal stress procedure are in test the results SOB (shortness of section. breath) Coronary artery disease involving [place] coronary artery of [place] heart without angina pectoris PROTHROMBIN TIME WITH STAT 10/30/2017 8:47 Other chest pain Results for this INR AM CDT Abnormal stress procedure are in test the results SOB (shortness of section. breath) Coronary artery disease involving [place] coronary artery of [place] heart without angina pectoris COMPREHENSIVE METABOLIC STAT 10/30/2017 8:47 Other chest pain Results for this PANEL AM CDT Abnormal stress procedure are in test the results SOB (shortness of section. breath) Coronary artery disease involving [place] coronary artery of [place] heart without angina pectoris CBC WITH PLATELET AND STAT 10/30/2017 8:47 Other chest pain Results for this DIFFERENTIAL AM CDT Abnormal stress procedure are in test the results SOB (shortness of section. breath) Coronary artery disease involving [place] coronary artery of [place] heart without angina pectoris US DUPLEX AORTA Routine 10/25/2017 9:47 Abdominal aortic Results for this INFERIOR VENA CAVA AM CDT aneurysm (AAA) procedure are in COMPLETE without rupture the results Abnormal EKG section. NM MYOCARDIAL PERFUSION Routine 10/22/2017 after 09/14/2017 Results Estimated GFR (11/06/2017 5:56 AM CDT)Only the most recent of4 resultswithin the time period is included. GFR Non Af Amer >90 mL/min/1.73 m2 [facility] DEPARTMENT OF PATHOLOGY AND GENOMIC MEDICINE GFR Af Amer >90 mL/min/1.73 m2 [facility] DEPARTMENT OF Comment: PATHOLOGY AND GENOMIC Chronic kidney disease: <60 mL/min/1.73m2 MEDICINE Kidney failure: <15 mL/min/1.73m2 The estimated GFR is calculated from the IDMS-traceable Modification of Diet in Renal Disease Equation. The accuracy of the calculation is poor when the creatinine is normal. Calculated values >90 mL/min/1.73m2 are not reported. This equation has not been validated in children (<18 years), women, the elderly (>70 years), or ethnic groups other than Caucasians and Americans. Specimen Plasma specimen Performing Organization Address City/State/Zipcode Phone Number [facility] DEPARTMENT OF PATHOLOGY AND [address] [place] [phone] [employer] CBC with platelet and differential (11/06/2017 5:56 AM CDT)Only the most recent of5 resultswithin the time period is included. WBC 6.59 4.50 - 11.00 k/uL [facility] DEPARTMENT OF PATHOLOGY AND GENOMIC MEDICINE RBC 4.52 4.40 - 6.00 m/uL [facility] DEPARTMENT OF PATHOLOGY AND GENOMIC MEDICINE HGB 14.5 14.0 - 18.0 g/dL [facility] DEPARTMENT OF PATHOLOGY AND GENOMIC MEDICINE HCT 42.8 41.0 - 51.0 % [facility] DEPARTMENT OF PATHOLOGY AND GENOMIC MEDICINE MCV 94.7 82.0 - 100.0 fL [facility] DEPARTMENT OF PATHOLOGY AND GENOMIC MEDICINE MCH 32.1 27.0 - 34.0 pg [facility] DEPARTMENT OF PATHOLOGY AND GENOMIC MEDICINE MCHC 33.9 31.0 - 37.0 g/dL [facility] DEPARTMENT OF PATHOLOGY AND GENOMIC MEDICINE RDW - SD 42.8 37.0 - 55.0 fL [facility] DEPARTMENT OF PATHOLOGY AND GENOMIC MEDICINE MPV 9.0 8.8 - 13.2 fL [facility] DEPARTMENT OF PATHOLOGY AND GENOMIC MEDICINE Platelet count 236 150 - 400 k/uL [facility] DEPARTMENT OF PATHOLOGY AND GENOMIC MEDICINE Nucleated RBC 0.00 /100 WBC [facility] DEPARTMENT OF PATHOLOGY AND GENOMIC MEDICINE Neutrophils 52.4 39.0 - 69.0 % [facility] DEPARTMENT OF PATHOLOGY AND GENOMIC MEDICINE Lymphocytes 33.4 25.0 - 45.0 % [facility] DEPARTMENT OF PATHOLOGY AND GENOMIC MEDICINE Monocytes 9.9 0.0 - 10.0 % [facility] DEPARTMENT OF PATHOLOGY AND GENOMIC MEDICINE Eosinophils 3.3 0.0 - 5.0 % [facility] DEPARTMENT OF PATHOLOGY AND GENOMIC MEDICINE Basophils 0.8 0.0 - 1.0 % [facility] DEPARTMENT OF PATHOLOGY AND GENOMIC MEDICINE Immature granulocytes 0.2Comment: 0.0 - 1.0 % [facility] DEPARTMENT OF "Immature PATHOLOGY AND GENOMIC granulocytes" MEDICINE (promyelocytes, myelocytes, metamyelocytes) Specimen Blood Performing Organization Address City/[facility] Phone Number [facility] DEPARTMENT OF PATHOLOGY AND [address] [place] [address] MEDICINE Phosphorus level (11/06/2017 5:56 AM CDT)Only the most recent of2 resultswithin the time period is included. Phosphorus 3.4 2.4 - 4.5 mg/dL [facility] DEPARTMENT OF PATHOLOGY AND GENOMIC MEDICINE Specimen Plasma specimen Performing Organization Address [facility] Centercode Phone Number [facility] DEPARTMENT OF PATHOLOGY AND [address] [place] [address] Magnesium level (11/06/2017 5:56 AM CDT)Only the most recent of2 resultswithin the time period is included. Magnesium 2.1 1.6 - 2.4 mg/dL [facility] DEPARTMENT OF PATHOLOGY AND GENOMIC MEDICINE Specimen Plasma specimen Performing Organization Address [facility] Centercode Phone Number [facility] DEPARTMENT OF PATHOLOGY AND [address] [place] [address] MEDICINE Basic metabolic panel (11/06/2017 5:56 AM CDT)Only the most recent of2 resultswithin the time period is included. Sodium 139 135 - 148 mEq/L [facility] DEPARTMENT OF PATHOLOGY AND GENOMIC MEDICINE Potassium 4.3 3.5 - 5.0 mEq/L [facility] DEPARTMENT OF PATHOLOGY AND GENOMIC MEDICINE Chloride 103 98 - 112 mEq/L [facility] DEPARTMENT OF PATHOLOGY AND GENOMIC MEDICINE CO2 25 24 - 31 mEq/L [facility] DEPARTMENT OF PATHOLOGY AND GENOMIC MEDICINE Anion gap 11 7 - 15 mEq/L [facility] DEPARTMENT OF PATHOLOGY Comment: AND GENOMIC MEDICINE Starting from October , anion gap calculation no longer incorporates potassium. Please note the change. BUN 17 8 - 23 mg/dL [facility] DEPARTMENT OF PATHOLOGY AND GENOMIC MEDICINE Creatinine 0.7 0.7 - 1.2 mg/dL [facility] DEPARTMENT OF PATHOLOGY AND GENOMIC MEDICINE Glucose 119 (H) 65 - 99 mg/dL [facility] DEPARTMENT OF PATHOLOGY AND GENOMIC MEDICINE Calcium 9.8 8.8 - 10.2 mg/dL [facility] DEPARTMENT OF PATHOLOGY AND GENOMIC MEDICINE Specimen Plasma specimen Performing Organization Address City/State/Zipcode Phone Number [facility] DEPARTMENT OF PATHOLOGY AND [address] [place] [address] Echocardiogram complete w contrast and 3D if needed (11/05/2017 3:49 PM CDT) Narrative Performed At [facility] Echocardiography Report [address] [facility], [facility] [address], [place] [address] Pat.Name:Alden VICENTE.ID:[id number] .Date: 11/05/2017 Refer.MD:MEME TY MD Exam Time: 2:45:00 PMStudy Type:Routine Echo Height:70inWeight: 214lb BSA: 2.15 m2 DOBAge:1945,72Y Sex: MALEBP:158/74 HR:47 bpmSonogrphr: Charity Kapadia RDCS Pat. Stat.:Inpatient Room:[facility] Study Status:Final Echo Event ID:[id number] Order ID:[id number] Reason for Study:Chest pain, recent PCI Procedures:2D Echo, Colorflow Doppler Race:C SUMMARY: LV EF is normal. Estimated EF is 60-64%. Mild aortic regurgitation. Overall wall motion is normal. FINDINGS: LV: LV size is normal. Concentric left ventricular remodeling. LVEF is normal. Overall wall motion is normal. Estimated EFis 60-64%. RV: RV size is normal. RV systolic function is normal. LA: LA size is normal. RA: RA size is normal. AO: Aortic root diameter is normal. ADRIENNE: No pericardial effusion. There is an anterior space consistentwith a prominent epicardial fat pad. AV: Moderate thickening of AV leaflets. Mild aortic regurgitation. MV: No structural MV abnormalities noted. PV: No structural PV abnormalities noted. TV: No structural TV abnormalities noted. Wilder: LV relaxation is impaired. LV filling pressure is normal. Other:Insufficient TR jet to estimate PA systolic pressure. MEASUREMENTS: 2D Parasternal [place] LVOT 2 cmLA Ds3.6 cm LVIDd4.4 cmIndex2.1 cm/m Ao An2 cm LVIDs2.8 cmAo Rtd 3.6 cm Index1.7 cm/m LV%fs 36.4 % LV Shgd462.5 g(122-174) IVSd 1.4 cmLVM Adlii817.8 g/m2 LVPWd1.3 cmRWT0.6 LA Sng Plane LA Area 17.3 cm2(8.8-23.4) LA Vol54.9 ml Index25.5 ml/m LA LngAx 4.6 cm RA Sng Plane RA Area 20.3 cm2(8.3-19.5) RA Vol59.7 ml Index27.7 ml/m RA LngAx 5.8 cm DOPPLER LVOT For Flow LVOT Area3.1 cm2 LVOT SV 85.2 ml NTAAelAej775.7 cm/sHR49.6 bpm LVOTpkPG 5.2 mmHgLVOT CO4.2 l/min LVOTmnPG 2.5 mmHgLVOT CI2 l/m/m2 LVOT TVI27.1 cm Signed 11/05/2017 07:57 PM Kun Felix M.D. Procedure Note Interface, Radiology Results In - 11/05/2017 7:57 PM CDT Echocardiography Report [address] [place] [address] Pat.Name: KEVIN VICENTE.ID: [id number] .Date: 11/05/2017 Refer.MD: MEME TY MD Exam Time: 2:45:00 PM Study Type:Routine Echo Height: 70in Weight: 214lb BSA: 2.15 m2 Age: 4 1945,72Y Sex: MALE BP: 158/74 HR: 47 bpm Sonogrphr: Charity Kapadia RDCS Pat. Stat.:[facility]patient [facility] Study Status:Final Echo Event ID:[id number] Order ID: [id number] Reason for Study:Chest pain, recent PCI Procedures:2D Echo, Colorflow Doppler Race: C SUMMARY: LV EF is normal. Estimated EF is 60-64%. Mild aortic regurgitation. Overall wall motion is normal. FINDINGS: LV: LV size is normal. Concentric left ventricular remodeling. LV EF is normal. Overall wall motion is normal. Estimated EF is 60-64%. RV: RV size is normal. RV systolic function is normal. LA: LA size is normal. RA: RA size is normal. AO: Aortic root diameter is normal. ADRIENNE: No pericardial effusion. There is an anterior space consistent with a prominent epicardial fat pad. AV: Moderate thickening of AV leaflets. Mild aortic regurgitation. MV: No structural MV abnormalities noted. PV: No structural PV abnormalities noted. TV: No structural TV abnormalities noted. Wilder: LV relaxation is impaired. LV filling pressure is normal. Other: Insufficient TR jet to estimate PA systolic pressure. MEASUREMENTS: 2D Parasternal [place] LVOT 2 cm LA Ds 3.6 cm LVIDd 4.4 cm Index 2.1 cm/m Ao An 2 cm LVIDs 2.8 cm Ao Rtd 3.6 cm Index 1.7 cm/m LV%fs 36.4 % LV Mass 227.5 g (122-174) IVSd 1.4 cm LVM Index 105.8 g/m2 LVPWd 1.3 cm RWT 0.6 LA Sng Plane LA Area 17.3 cm2 (8.8-23.4) LA Vol 54.9 ml Index 25.5 ml/m LA LngAx 4.6 cm RA Sng Plane RA Area 20.3 cm2 (8.3-19.5) RA Vol 59.7 ml Index 27.7 ml/m RA LngAx 5.8 cm DOPPLER LVOT For Flow LVOT Area 3.1 cm2 LVOT SV 85.2 ml LVOTpkVel 113.7 cm/s HR 49.6 bpm LVOTpkPG 5.2 mmHg LVOT CO 4.2 l/min LVOTmnPG 2.5 mmHg LVOT CI 2 l/m/m2 LVOT TVI 27.1 cm Signed 11/05/2017 07:57 PM Kun Felix M.D. Performing Organization Address City/State/Zipcode Phone Number [facility] [address] [place] [address] ECG 12 lead (11/05/2017 10:13 AM CDT)Only the most recent of3 resultswithin the time period is included. Ventricular rate 46 [facility] Atrial rate 46 [facility] DE interval 166 [facility] QRSD interval 110 [facility] QT interval 428 [facility] QTC interval 374 [facility] P axis 1 20 [facility] QRS axis 1 -57 [facility] T wave axis -34 [facility] EKG impression Marked sinus bradycardia-Left axis deviation-Moderate voltage criteria for LVH, may be normal variant-Abnormal ECG-In automated comparison with ECG of 04-NOV-2017 18:47,-No significant change was found- [facility] MUSE Performing Organization Address City/[facility] Cent[facility]ode Phone Number [facility] M[facility] [address] [place] [address] Troponin (11/05/2017 2:16 AM CDT)Only the most recent of2 resultswithin the time period is included. Troponin 0.33 (H) 0.00 - 0.30 ng/mL [facility] DEPARTMENT OF PATHOLOGY Comment: AND [employer] MEDICINE 0.30 - 1.49 ng/mlMay indicate increased risk of acute coronary syndrome. >=1.5 ng/mlConsistent with acute myocardial infarction. The diagnostic value of a single normal or non-diagnostic result is questionable.Serial samples at 2-6 hour intervals are required to rule out acute myocardial injury. Specimen Plasma specimen Performing Organization Address City/[facility] Centercode Phone Number [facility] DEPARTMENT OF PATHOLOGY AND [address] [place] [address] [employer] MEDICINE Comprehensive metabolic panel (11/05/2017 2:16 AM CDT)Only the most recent of3 resultswithin the time period is included. Sodium 142 135 - 148 mEq/L [facility] DEPARTMENT OF PATHOLOGY AND GENOMIC MEDICINE Potassium 4.1 3.5 - 5.0 mEq/L [facility] DEPARTMENT OF PATHOLOGY AND GENOMIC MEDICINE Chloride 104 98 - 112 mEq/L [facility] DEPARTMENT OF PATHOLOGY AND GENOMIC MEDICINE CO2 25 24 - 31 mEq/L [facility] DEPARTMENT OF PATHOLOGY AND GENOMIC MEDICINE Anion gap 13 7 - 15 mEq/L [facility] DEPARTMENT OF Comment: PATHOLOGY AND GENOMIC Starting from October , anion gap calculation MEDICINE no longer incorporates potassium. Please note the change. BUN 14 8 - 23 mg/dL [facility] DEPARTMENT OF PATHOLOGY AND GENOMIC MEDICINE Creatinine 0.9 0.7 - 1.2 mg/dL [facility] DEPARTMENT OF PATHOLOGY AND GENOMIC MEDICINE Glucose 119 (H) 65 - 99 mg/dL [facility] DEPARTMENT OF PATHOLOGY AND GENOMIC MEDICINE Calcium 9.4 8.8 - 10.2 mg/dL [facility] [facility] DEPARTMENT OF PATHOLOGY AND GENOMIC MEDICINE Protein 6.5 6.3 - 8.3 g/dL [facility] DEPARTMENT OF Comment: PATHOLOGY AND GENOMIC [place] 4.6-7.0 g/dL MEDICINE 1 week 4.4-7.6 g/dL 7 months-1year5.1-7.3 g/dL 1-2 years5.6-7.5 g/dL >3 years6.0-8.0 g/dL 18-150 6.3-8.3 g/dL Albumin 3.1 (L) 3.5 - 5.0 g/dL [facility] DEPARTMENT OF PATHOLOGY AND GENOMIC MEDICINE A/G ratio 0.9 0.7 - 3.8 [facility] DEPARTMENT OF PATHOLOGY AND GENOMIC MEDICINE Alkaline phosphatase 65 40 - 129 U/L [facility] DEPARTMENT OF PATHOLOGY AND GENOMIC MEDICINE AST 21 10 - 50 U/L [facility] DEPARTMENT OF PATHOLOGY AND GENOMIC MEDICINE ALT 18 5 - 50 U/L [facility] DEPARTMENT OF PATHOLOGY AND GENOMIC MEDICINE Total bilirubin 0.3 0.0 - 1.2 mg/dL [facility] DEPARTMENT OF PATHOLOGY AND GENOMIC MEDICINE Specimen Plasma specimen Performing Organization Address [facility] Phone Number [facility] DEPARTMENT OF PATHOLOGY AND [address] [place] [address] Prothrombin time with INR (11/05/2017 1:49 AM CDT)Only the most recent of2 resultswithin the time period is included. Prothrombin time 13.9 12.0 - 15.0 sec [facility] DEPARTMENT OF PATHOLOGY AND GENOMIC MEDICINE INR 1.1 [facility] DEPARTMENT OF Comment: PATHOLOGY AND GENOMIC The International Normalized Ratio (INR) is a therapeutic MEDICINE monitoring tool for patients who are stable on oral anticoagulant therapy. An INR of 2.0-3.0 is suggested for deep vein thrombosis/pulmonary embolism. Specimen Blood Performing Organization Address City/[facility] Phone Number [facility] DEPARTMENT OF PATHOLOGY AND [address] [place] [phone] GENOMIC MEDICINE Type and screen (11/05/2017 1:49 AM CDT) ABO grouping A [facility] DEPARTMENT OF PATHOLOGY AND GENOMIC MEDICINE Rh type POS [facility] DEPARTMENT OF PATHOLOGY AND GENOMIC MEDICINE Antibody screen (gel) NEG [facility] DEPARTMENT OF PATHOLOGY AND GENOMIC MEDICINE Specimen Blood Performing Organization Address City/[facility] Phone Number [facility] DEPARTMENT OF PATHOLOGY AND [address] [place] [phone] [facility] B natriuretic peptide (11/05/2017 1:49 AM CDT) BNP 32 0 - 100 pg/mL [facility] DEPARTMENT OF PATHOLOGY AND GENOMIC MEDICINE Specimen Blood Performing Organization Address [facility] Phone Number [facility] DEPARTMENT OF PATHOLOGY AND [address] [place] [address] GENOMIC MEDICINE XR Chest 1 Vw Portable (11/04/2017 6:15 PM CDT) Narrative Performed At EXAMINATION:XR CHEST 1 VW PORTABLE RADIANT CLINICAL HISTORY:Chest Pain COMPARISON:To previous examination from 04/15/2005 IMPRESSION: The cardiomediastinal silhouette is normal in appearance. The lungs are clear. There is no evidence of consolidation, congestion, or pneumothorax. A pleural effusion is not present. The lungs are hypoventilated. Visualized skeletal structures demonstrate no definite abnormality. Negative examination. [facility]-[id number] Procedure Note [facility], Radiology Results Incoming - 11/04/2017 6:25 PM CDT EXAMINATION: XR CHEST 1 VW PORTABLE CLINICAL HISTORY: Chest Pain COMPARISON: To previous examination from 04/15/2005 IMPRESSION: The cardiomediastinal silhouette is normal in appearance. The lungs are clear. There is no evidence of consolidation, congestion, or pneumothorax. A pleural effusion is not present. The lungs are hypoventilated. Visualized skeletal structures demonstrate no definite abnormality. Negative examination. [facility]-[id number] Performing Organization Address [facility] Phone Number [facility] [address] [place] [address] ECG Pre/Post Op (STAT) (11/01/2017 3:13 PM CDT) Ventricular rate 48 [facility] Atrial rate 48 [facility] DE interval 168 [facility] QRSD interval 98 [facility] QT interval 444 [facility] QTC interval 396 [facility] P axis 1 9 [facility] QRS axis 1 -57 [facility] T wave axis -17 [facility] EKG impression Sinus bradycardia-Left anterior fascicular block-Minimal voltage criteria for LVH, may be normal variant-Abnormal ECG-In automated comparison with ECG of 01-NOV-2017 10:17,-No significant change was fou [facility] MUSE nd- Performing Organization Address [facility] Phone Number [facility] MUSE [address] [place] [address] Cv quality assurance/r&d lab technician procedure (11/01/2017 2:47 PM CDT) Narrative Performed At Findings: [facility] with no obstructive coronary disease LCx with calcified severe stenosis in the mid segment.Large vessel with small aneurysmal segment proximal to the stenosis. RCA diffusely ectatic with significant stenosis in the proximal segment. Procedure Details Attending: Dr. Bhakta Interventional Fellow: See Beach MD EQUIPMENT/ANTICOAGULATION: Right Radial Artery 6F Sheath [id number] Catheter Hi-Torque Floppy XS coronary wire Anticoagulation:Angiomax bolus and Infusion with ACT >250 sec prior to procedure PROCEDURAL DETAILS: The RCA was engaged with the [id number] Catheter and a Hi-Torque Floppy XS coronary [...] Cardiac rehabilitation. 4. Transferred in stable condition Performing Organization Address City/[facility]/Zipcode Phone Number [facility] [address] [place] [address] Activated clotting time (11/01/2017 1:41 PM CDT) Activated clotting time 377 (H) 96 - 152 sec [facility] DEPARTMENT OF PATHOLOGY Comment: AND GENOMIC MEDICINE Meter ID: [id number] It Generalist: Alvaro Mendosa Performing Organization Address City/[facility]/Zipcode Phone Number [facility] DEPARTMENT OF PATHOLOGY AND [address] [place] [address] GENOMIC MEDICINE CK-MB (11/01/2017 10:58 AM CDT) CK-MB 6.5 1.0 - 10.4 ng/mL [facility] DEPARTMENT OF PATHOLOGY Comment: AND Recroup As of Nov 20 2017, this test will no longer be available in [facility]. Specimen Plasma specimen Performing Organization Address City/[facility]/Zipcode Phone Number [facility] DEPARTMENT OF PATHOLOGY AND [address] [place] [address] [facility] Partial thromboplastin time, activated (10/30/2017 8:47 AM CDT) aPTT 27 24 - 33 sec [facility] Comment: This test has not been validated for monitoring unfractionated heparin therapy. aPTT-based therapeutic ranges for unfractionated heparin therapy have not been established. For general guidelines on Heparin monitoring, refer to the [facility] Directory of Services. Specimen Blood Narrative Performed At Performed at:01 - [facility] [address], [id number] Emery Grinder: King Pascal MD, Phone:[phone] Performing Organization Address City/[facility]/Zipcode Phone Number [facility] Pv duplex aorta complete (10/25/2017 9:47 AM CDT) Narrative Performed At [facility] Abdominal Aorta-Iliac Report Pat.Name:Alden VICENTE.ID:[id number] .Date: 10/25/2017Refer.MD:ASIM BHAKTA MD Exam Time: 10:02:00 AM Study Type:Abd. Aorta-Iliac DOBAge:1945,72Y Sex: MALE Sonogrphr: Karrie Macedo RDMS, RDCS, RVT Pat. Stat.:Outpatient Room:[place] [address]: [id number] Echo Event ID:[id number] Order ID:[id number] Reason for Study:Abdominal aortic aneurysm Race:C SUMMARY: DUPLEX OBSERVATIONS: Duplex scan of the abdominal aorta and iliac artery bifurcation was performed. The infrarenal aorta is aneurysmal with the largest diameter measuring 4.02 cm. There is concentric calcified plaque in the aorta and iliac artery bifurcation without hemodynamically significant stenosis. PRELIMINARY FINDINGS: 4.02 cm abdominal aortic aneurysm with concentric calcified plaque Normal velocities PHYSICIAN INTERPRETATION: Patent infrarenal abdominal aorta and iliac arteries. Aneurysmal dilatation of the infrarenal abdominal aorta with a maximum diameter of 4.02 cm MEASUREMENTS: DOPPLER Common Iliac Artery Right Common Il71.9 cm/s Left Common Ili59.2 cm/s Right Common Il 0 cm/s Left Common Ranjana 0 cm/s Right Common Il46 degLeft Common Ili42 deg AO Distal AO Distal PSV 39.4 cm/s Aorta Aorta Dist EDV 0 cm/sAorta Mid Angul58 deg Aorta Dist Angu58 degAorta Prox PSV60.4 cm/s Aorta Mid PSV 55.1 cm/sAorta Prox EDV 0 cm/s Aorta Mid EDV0 cm/sAorta Prox Angu58 deg Signed 11/05/2017 11:54 AM Asim Bhakta MD Procedure Note Interface, Radiology Results In - 11/05/2017 11:54 AM CDT [facility] Abdominal Aorta-Iliac Report Pat.Name: KEVIN VICENTE Pat.ID: [id number] .Date: 10/25/2017 Refer.MD: ASIM BHAKTA MD Exam Time: 10:02:00 AM Study Type:Abd. Aorta-Iliac Age: 4 1945,72Y Sex: MALE Sonogrphr: Karrie Macedo RDMS, RDCS, RVT Pat. Stat.:Outpatient Room: [facility] 4: [id number] Echo Event ID:[id number] Order ID: [id number] Reason for Study:Abdominal aortic aneurysm Race: C SUMMARY: DUPLEX OBSERVATIONS: Duplex scan of the abdominal aorta and iliac artery bifurcation was performed. The infrarenal aorta is aneurysmal with the largest diameter measuring 4.02 cm. There is concentric calcified plaque in the aorta and iliac artery bifurcation without hemodynamically significant stenosis. PRELIMINARY FINDINGS: 4.02 cm abdominal aortic aneurysm with concentric calcified plaque Normal velocities PHYSICIAN INTERPRETATION: Patent infrarenal abdominal aorta and iliac arteries. Aneurysmal dilatation of the infrarenal abdominal aorta with a maximum diameter of 4.02 cm MEASUREMENTS: DOPPLER Common Iliac Artery Right Common Il 71.9 cm/s Left Common Ranjana 59.2 cm/s Right Common Il 0 cm/s Left Common Ranjana 0 cm/s Right Common Il 46 deg Left Common Ranjana 42 deg AO Distal AO Distal PSV 39.4 cm/s Aorta Aorta Dist EDV 0 cm/s Aorta Mid Angul 58 deg Aorta Dist Angu 58 deg Aorta Prox PSV 60.4 cm/s Aorta Mid PSV 55.1 cm/s Aorta Prox EDV 0 cm/s Aorta Mid EDV 0 cm/s Aorta Prox Angu 58 deg Signed 11/05/2017 11:54 AM Asim Bhakta MD Performing Organization Address City/State/[facility] Phone Number [facility] [address] [place] [address] [place] myocardial perfusion (10/22/2017) Narrative Performed At after 09/14/2017 Insurance Payer Benefit Plan / Group Subscriber ID Type Phone Address MEDICARE MEDICARE PART A AND B xxxxxxxxxx Medicare [place], [place] AAR AARP SUPPLEMENT xxxxxxxxx-xx Commercial Advance Directives Patient has advance care planning documents on file. For more information, please contact:Sarkis Kaur[address] [place] [address]
--- NOTE | 2018-09-15 09:17 | EDPHYS ---
Physician Documentation [facility] Name: Louie Lebron Age: 73 yrs Sex: Male : 1945 Arrival Date: 09/15/2018 Time: 08:05 Bed 15 Private MD: out of town, doctor ED Physician Brijesh Lees HPI: 09/15 09:16 This 73 yrs old Male presents to ER via Ambulatory with complaints of kb Possible Blood Clot. 09:16 The patient presents with pain, that is acute. The complaints affect the right lopez. kb Context: The problem was sustained outdoors, resulted from an unknown cause, the patient can fully bear weight, the patient is able to ambulate, Problem is a result from a previous injury: No. Onset: The symptoms/episode began/occurred 5 day(s) ago. Modifying factors: The symptoms are alleviated by nothing. the symptoms are aggravated by nothing. Associated signs and symptoms: The patient has no apparent associated signs or symptoms. Treatment prior to arrival includes: no previous treatment. Severity of symptoms: At their worst the symptoms were moderate, in the emergency department the symptoms have resolved. The patient has not experienced similar symptoms in the past. The patient has not recently seen a physician. Pt reports intermittent pain in right lopez that has been going on for 5 days. States it comes more often when he walks a few miles in the mornings, but last night it came on while watching TV. States the pain only lasts for a few seconds then goes away, but his wanted him to come get checked for a blood clot just in case. . Historical: - Allergies: 08:10 No Known Allergies; rb1 - Home Meds: 08:10 amlodipine 10 mg tab 1 tab once daily [Active]; aspirin 81 mg Oral TbEC 1 tab once rb1 daily [Active]; atorvastatin 40 mg Oral tab 1 tab once daily [Active]; Metoprolol Tartrate Oral [Active]; Plavix 75 mg Oral tab 1 tab once daily [Active]; Prilosec Oral [Active]; - PMHx: 08:10 Aneurysm; Tachycardia; rb1 - PSHx: 08:10 Cholecystectomy; Heart stents; rb1 - Immunization history:: Adult Immunizations up to date. - Social history:: Smoking status: Patient/guardian denies using tobacco. - Ebola Screening: : No symptoms or risks identified at this time. ROS: 09:16 Constitutional: Negative for fever, chills, and weight loss, Cardiovascular: Negative kb for chest pain, palpitations, and edema, Respiratory: Negative for shortness of breath, cough, wheezing, and pleuritic chest pain, Abdomen/GI: Negative for abdominal pain, nausea, vomiting, diarrhea, and constipation, Back: Negative for injury and pain, Skin: Negative for injury, rash, and discoloration, Neuro: Negative for headache, weakness, numbness, tingling, and seizure. 09:16 MS/extremity: Positive for pain, of the right lopez. Exam: 09:16 Constitutional: This is a well developed, well nourished patient who is awake, alert, kb and in no acute distress. Head/Face: Normocephalic, atraumatic. Chest/axilla: Normal chest wall appearance and motion. Nontender with no deformity. No lesions are appreciated. Cardiovascular: Regular rate and rhythm with a normal S1 and S2. No gallops, murmurs, or rubs. Normal PMI, no JVD. No pulse deficits. Respiratory: Lungs have equal breath sounds bilaterally, clear to auscultation and percussion. No rales, rhonchi or wheezes noted. No increased work of breathing, no retractions or nasal flaring. Abdomen/GI: Soft, non-tender, with normal bowel sounds. No distension or tympany. No guarding or rebound. No evidence of tenderness throughout. Skin: Warm, dry with normal turgor. Normal color with no rashes, no lesions, and no evidence of cellulitis. MS/ Extremity: Pulses equal, no cyanosis. Neurovascular intact. Full, normal range of motion. Neuro: Awake and alert, GCS 15, oriented to person, place, time, and situation. Cranial nerves II-XII grossly intact. Motor strength 5/5 in all extremities. Sensory grossly intact. Cerebellar exam normal. Normal gait. Vital Signs: 08:10 BP 146 / 76; Pulse 60; Resp 16; Temp 98.2; Pulse Ox 100% on R/A; Pain 0/10; hb 09:10 BP 136 / 75; Pulse 51; Resp 17; Pulse Ox 95% on R/A; Pain 0/10; rb1 MDM: 08:10 Patient medically screened. kb 09:16 Data reviewed: vital signs, nurses notes. Data interpreted: Pulse oximetry: on room air kb is 100 %. Interpretation: normal. Counseling: I had a detailed discussion with the patient and/or guardian regarding: the historical points, exam findings, and any diagnostic results supporting the discharge/admit diagnosis, radiology results, the need for outpatient follow up, a family practitioner, to return to the emergency department if symptoms worsen or persist or if there are any questions or concerns that arise at home. 09/15 08:14 Order name: US Extremity Venous Unilateral Ltd kb Administered Medications: No medications were administered Disposition: 09/16 07:45 Co-signature as Attending Physician, Brijesh Lees MD I agree with the assessment and juliette plan of care. Disposition: 09/15/18 09:15 Discharged to Home. Impression: Pain in right lower leg. - Condition is Stable. - Discharge Instructions: Musculoskeletal Pain, Muscle Cramps and Spasms, [id number]-[id number]. - Medication Reconciliation Form, Thank You Letter, Antibiotic Education, Prescription Opioid Use form. - Follow up: Private Physician; When: 2 - 3 days; Reason: Recheck today's complaints, Continuance of care, Re-evaluation by your physician. Follow up: Emergency Department; When: As needed; Reason: Worsening of condition. Signatures: Dispatcher [employer] EDMS Shirin Tabares, AEGIS CONSOLE OPERATOR TRACK-C AEGIS CONSOLE OPERATOR TRACK-Brijesh Dorman MD MD cha Barber, Rebecca, RN RN rb1 Libby Rincon RN RN Corrections: (The following items were deleted from the chart) 09/15 09:25 09:15 09/15/2018 09:15 Discharged to Home. Impression: Pain in right lower leg. rb1 Condition is Stable. Forms are Medication Reconciliation Form, Thank You Letter, Antibiotic Education, Prescription Opioid Use. Follow up: Private Physician; When: 2 - 3 days; Reason: Recheck today's complaints, Continuance of care, Re-evaluation by your physician. Follow up: Emergency Department; When: As needed; Reason: Worsening of condition. kb
--- NOTE | 2018-09-15 09:17 | ER ---
Nurse's Notes [facility] Name: Louie Lebron Age: 73 yrs Sex: Male : 1945 Arrival Date: 09/15/2018 Time: 08:05 Bed 15 Private MD: out of town, doctor Diagnosis: Pain in right lower leg Presentation: 09/15 08:11 Presenting complaint: Right lower leg pain when ambulating. Transition of care: patient hb was not received from another setting of care. Onset of symptoms was September 15, 2018. Risk Assessment: Do you want to hurt yourself or someone else? Patient reports no desire to harm self or others. Initial Sepsis Screen: Does the patient meet any 2 criteria? No. Patient's initial sepsis screen is negative. Does the patient have a suspected source of infection? No. Patient's initial sepsis screen is negative. Care prior to arrival: None. 08:11 Method Of Arrival: Ambulatory hb 08:11 Acuity: MARIBEL 3 hb Historical: - Allergies: 08:10 No Known Allergies; rb1 - Home Meds: 08:10 amlodipine 10 mg tab 1 tab once daily [Active]; aspirin 81 mg Oral TbEC 1 tab once rb1 daily [Active]; atorvastatin 40 mg Oral tab 1 tab once daily [Active]; Metoprolol Tartrate Oral [Active]; Plavix 75 mg Oral tab 1 tab once daily [Active]; Prilosec Oral [Active]; - PMHx: 08:10 Aneurysm; Tachycardia; rb1 - PSHx: 08:10 Cholecystectomy; Heart stents; rb1 - Immunization history:: Adult Immunizations up to date. - Social history:: Smoking status: Patient/guardian denies using tobacco. - Ebola Screening: : No symptoms or risks identified at this time. Screenin:10 Abuse screen: Denies threats or abuse. Nutritional screening: No deficits noted. rb1 Tuberculosis screening: No symptoms or risk factors identified. Fall Risk None identified. Assessment: 08:10 General: Appears in no apparent distress. comfortable, Behavior is calm, cooperative. rb1 Pain: Complains of pain in right lopez Pain currently is 0 out of 10 on a pain scale. Pain began Pt. reports pain only when up walking around. The pain comes and goes. Aggravated by walking. Neuro: Level of Consciousness is awake, alert, obeys commands, Oriented to person, place, time, situation. Cardiovascular: Capillary refill < 3 seconds is brisk in bilateral fingers. Respiratory: Airway is patent Respiratory effort is even, unlabored, Respiratory pattern is regular, symmetrical. GI: No signs and/or symptoms were reported involving the gastrointestinal system. : No signs and/or symptoms were reported regarding the genitourinary system. Derm: Skin is pink, warm \T\ dry. A spot on his right lopez has discoloration. Musculoskeletal: Range of motion: intact in all extremities. 09:10 Reassessment: Patient appears in no apparent distress at this time. No changes from rb1 previously documented assessment. Vital Signs: 08:10 BP 146 / 76; Pulse 60; Resp 16; Temp 98.2; Pulse Ox 100% on R/A; Pain 0/10; hb 09:10 BP 136 / 75; Pulse 51; Resp 17; Pulse Ox 95% on R/A; Pain 0/10; rb1 ED Course: 08:05 Patient arrived in ED. mr 08:05 out of town, doctor is Private Physician. mr 08:10 Shirin Tabares FNP-C is [facility]. kb 08:10 Brijesh Lees MD is Attending Physician. kb 08:10 Patient has correct armband on for positive identification. Bed in low position. Call rb1 light in reach. Side rails up X 1. Pulse ox on. NIBP on. 08:10 Arm band placed on right wrist. rb1 08:11 Triage completed. hb 08:31 Ember Arambula, RN is Primary Nurse. rb1 09:07 Ultrasound completed. Patient tolerated well. sg3 09:25 No provider procedures requiring assistance completed. Patient did not have IV access rb1 during this emergency room visit. Administered Medications: No medications were administered Outcome: 09:15 Discharge ordered by . kb 09:25 Patient left the ED. rb1 09:25 Discharged to home ambulatory. rb1 09:25 Condition: stable 09:25 Discharge instructions given to patient, Instructed on discharge instructions, follow up and referral plans. Demonstrated understanding of instructions, follow-up care, Prescriptions given X none Signatures: Shirin Tabares FNP-C FNP-Christie GuyErin mr Ember Arambula, RN RN rb1 Libby Rincon RN RN Maureen Aj sg3
--- NOTE | 2018-09-15 09:28 | RAD REPORT ---
EXAM DESCRIPTION: USExtremity Venous Uni Ltd09/15/2018 9:04 am CLINICAL HISTORY: Right leg pain COMPARISON: None. FINDINGS: Right common femoral, superficial femoral, popliteal and right posterior tibial veins are compressible and demonstrate augmentation. Doppler demonstrates good flow. IMPRESSION: No evidence of deep venous thrombosis involving the right lower extremity.
== END 2018-09-15 09:25 | disposition home or self-care (01) ==
LOC: ER 08:01
DX: M79.661 Pain in right lower leg (principal); Z79.82 Long term (current) use of aspirin
CPT/HCPCS: 93971; 99283

== ENCOUNTER 2021-03-03 18:27 | Emergency (ER) | payer OTHER, MEDICARE ==
--- OUTSIDE RECORDS SUMMARY | 2021-03-03 18:30 | XMS REPORT | Continuity of Care Document ---
:1945 Author Organization [facility] t Address [address] [place] [address] Care Team Providers Name Role Phone IRISH Attending Clinician Unavailable MARCO ANTONIO Attending Clinician Unavailable YONY Attending Clinician Unavailable JESS Attending Clinician Unavailable Problems This patient has no known problems. Allergies, Adverse Reactions, Alerts This patient has no known allergies or adverse reactions. Medications This patient has no known medications. Procedures This patient has no known procedures. Encounters Start End Encounter Admission Attending Care Care Encounter Source Date/Time Date/Time Type Type Clinicians Facility Department ID 2021-02-14 2021-02-14 Outpatient IRISH, KENDALL [facility] [id number] [place] 00:00:00 00:00:[address] 2021-02-10 2021-02-10 Outpatient [facility] [id number] [place] 00:00:00 00:00:00 MARII [address] 2021-02-10 2021-02-10 [facility] [id number] [place] 00:00:00 00:00:00 MARII [facility] [facility] 2021-02-10 2021-02-10 [facility] [id number] [place] 00:00:00 00:00:00 MARII [address] 2021-02-07 2021-02-07 Outpatient IRISH, [facility] [id number] [place] 00:00:00 00:00:[address] 2021-02-07 2021-02-07 Outpatient IRISH, KENDALL [facility] [id number] [place] 00:00:00 00:00:[address] 2021-01-31 2021-01-31 Outpatient IRISH, [facility] [id number] [place] 00:00:00 00:00:[address] 2020-12-14 2020-12-14 Outpatient BHAKTA, [facility] [id number] [place] 00:00:00 00:00:00 ASIM [address] 2020-12-14 2020-12-14 Outpatient MARCO ANTONIO, [facility] [id number] [place] 00:00:00 00:00:00 MARII [address] 2020-10-13 2020-10-13 Outpatient MARCO ANTONIO, [facility] [id number] [place] 00:00:00 00:00:00 MARII [address] 2020-08-10 2020-08-10 Outpatient IRISH, KENDALL [facility] [id number] [place] 00:00:00 00:00:[address] 2020-08-02 2020-08-02 Outpatient IRISH, KENDALL [facility] [id number] [place] 00:00:00 00:00:[address] 2020-06-15 2020-06-15 Outpatient BHAKTA, [facility] [id number] [place] 00:00:00 00:00:00 ASIM [address] 2020-04-16 2020-04-16 Outpatient SASSARD, [facility] [id number] [place] 00:00:00 00:00:00 MANE [address] 2020-04-09 2020-04-09 Outpatient MARCO ANTONIO, [facility] [id number] [place] 00:00:00 00:00:00 MARII [address] 2020-04-09 2020-04-09 Outpatient MARCO ANTONIO, [facility] [id number] [place] 00:00:00 00:00:00 MARII [address] 2020-04-05 2020-04-05 Outpatient BHAKTA, [facility] [id number] [place] 00:00:00 00:00:00 ASIM [address] 2020-03-08 2020-03-08 Outpatient BHAKTA, [facility] [id number] [place] 00:00:00 00:00:00 ASIM [address] 2020-03-01 2020-03-01 Outpatient IRISH, KENDALL [facility] [id number] [place] 00:00:00 00:00:[address] 2020-03-01 2020-03-01 Outpatient IRISH, KENDALL [facility] [id number] [place] 00:00:00 00:00:[address] 2020-03-01 2020-03-01 Outpatient IRISH, KENDALL [facility] [id number] [place] 00:00:00 00:00:[address] 2020-01-26 2020-01-26 Outpatient IRISH, KENDALL [facility] [id number] [place] 00:00:00 00:00:[address] 2020-01-01 2020-01-01 Outpatient MARCO ANTONIO, [facility] [id number] [place] 00:00:00 00:00:00 MARII [address] 2019-12-16 2019-12-16 Outpatient BHAKTA, [facility] [id number] [place] 00:00:00 00:00:00 ASIM [address] 2019-12-16 2019-12-16 Outpatient BHAKTA, [facility] [id number] [place] 00:00:00 00:00:00 ASIM [address] 2019-07-28 2019-07-28 Outpatient IRISH, KENDALL [facility] [id number] [place] 00:00:00 00:00:[address] Results This patient has no known results.
[2021-03-03 19:45] LABS: Absolute Lymphocytes (CBC) 2.9 K/uL (0.7-4.9); Basophils % 1.4 % (0-1.3); Hematocrit 43.6 % (39.6-49.0); Lymphocytes % 40.7 % (15.3-44.8); MPV 6.6 fL (7.6-11.3); RBC Red Blood Cell Count 4.62 M/uL (4.33-5.43)
--- NOTE | 2021-03-03 20:13 | RAD REPORT ---
EXAM DESCRIPTION: CT - Angio Aorta For Dissection - 03/03/2021 7:51 pm CLINICAL HISTORY: ABDOMINAL DISTENTION COMPARISON: None. TECHNIQUE: Dynamically enhanced 3 mm thick images of the chest, abdomen, and upper pelvis were obtai hansa during administration of approximately 150mL Isovue 370 IV contrast. Sagittal and coronal reconst ruction images were generated using MIP and reviewed. Exam utilizes a protocol to evaluate entire cou rse of the aorta. All CT scans are performed using dose optimization technique as appropriate and may include automated exposure control or mA/KV adjustment according to patient size. FINDINGS: Ascending thoracic aorta is 4.4 cm AP x 4.3 cm TR. Aorta is 2.9 cm in diameter at the aort ic arch. Mid descending thoracic aorta is 3.4 cm AP x 3.7 cm TR. Distal descending thoracic aorta is 3.4 cm. At the vane of the diaphragm the aorta measures 3.6 cm AP x 3.7 cm TR. Aorta is dilated at 3. 2 cm at the superior mesenteric artery level. At the renal artery level the aorta is 3.7 cm AP x 3.5 cm TR. Infrarenal abdominal aortic aneurysmal dilatation is greatest in the mid portion measuring 6.0 cm AP x 5.3 cm TR. Aneurysmal dilatation extends into the common iliac arteries lopez measuring 3.1 cm on the left and 2. 2 cm on the right. In the thoracic aorta atherosclerotic wall calcifications relatively mild with no displaced calcifica tions. Prominent irregular ulcerative plaquing changes are present in the aorta distal to the superio r mesenteric artery and continuing to the aortic bifurcation. Peripheral wall calcifications are pres ent. There is large amount of mural thrombus in the infrarenal aortic aneurysm. No centrally displace d calcifications are present. No rupture or leakage of the aortic aneurysm. Pulmonary arteries are normal as well. No cardiomegaly, pericardial thickening or pericardial effusio n. No mass or infiltrate in the lung parenchyma. No pleural thickening, pleural effusion or pneumothorax . No abnormal mediastinal or hilar mass or lymphadenopathy seen. No chest wall mass or abnormal axillar y lymphadenopathy. Renal and mesenteric wall calcifications are present in the arteries but no occlusion or significant stenosis. The liver, spleen and pancreas show no suspicious findings. Cholecystectomy clips are prese nt. Renal function is symmetric. Enhancing renal mass is not identified. The patient has bilateral ca lyx calculi up to 11 mm in size. No obstructing stone. No bladder calculus, wall thickening or mass i dentifiable. Numerous prostate calcifications are present. No free air, free fluid or inflammatory stranding. No acute bowel finding seen. There is prominent si gmoid diverticulosis. No mass or abnormal lymphadenopathy. Disc and bone degenerative changes are present. IMPRESSION: A 6.0 centimeter infrarenal abdominal aortic aneurysm is present. Most of the abdominal aorta and most of the thoracic aorta show some degree of aneurysmal dilatation. Irregular ulcerative plaquing changes are present in the abdominal aorta. No aneurysm leak or rupture. No communication to the system identifiable. The patient has numerous calyx calculi but no obstructing stone. No mass lesion of the kidneys, urete rs or bladder identifiable. No other significant findings on chest, abdomen and upper pelvis examination.
[2021-03-03 20:16] LABS: ALT/SGPT 28 U/L (12-78); AST/SGOT 16 U/L (15-37); Albumin 4.1 g/dL (3.4-5.0); Alkaline Phosphatase 88 U/L (45-117); BUN Blood Urea Nitrogen 19 mg/dL (7-18); Bicarbonate 23 mmol/L (21-32); Bilirubin Total 0.2 mg/dL (0.2-1.0); Glucose Level 95 mg/dL (74-106); Lipase 163 U/L (73-393); Potassium 3.9 mmol/L (3.5-5.1); Protein, Total 8.2 g/dL (6.4-8.2); Sodium Level 141 mmol/L (136-145)
[2021-03-03 20:43] LABS: Urine Blood 3+ (Negative); Urine Glucose Negative (Negative); Urine Protein 3+ (Negative); Urine Specific Gravity 1.025 (1.005-1.030); Urine pH 5.5 (5.0-7.0)
--- NOTE | 2021-03-03 20:47 | ER ---
Nurse's Notes [facility] Name: Louie Lebron Age: 76 yrs Sex: Male : 1945 Arrival Date: 03/03/2021 Time: 18:39 Bed DIS13 Private MD: out of town, doctor Diagnosis: Abdominal aortic aneurysm, without rupture;Hematuria, unspecified;UTI/ Urinary tract infection, site not specified Presentation: 03/03 19:12 Chief complaint: Patient states: Voided and was bright red blood x 1 hour ago, no hx of lp1 voiding blood; Reports some pain to LLQ of abdomen; Hx of aorta problem, concerned it is his aorta. Coronavirus screen: Client denies travel out of the [place] in the last 14 days. At this time, the client does not indicate any symptoms associated with coronavirus-19. Ebola Screen: No symptoms or risks identified at this time. Onset of symptoms was March 03, 2021 at 18:00. 19:12 Method Of Arrival: Ambulatory lp1 19:12 Acuity: MARIBEL 3 lp1 19:18 Initial Sepsis Screen: Does the patient meet any 2 criteria? No. Patient's initial lp1 sepsis screen is negative. Does the patient have a suspected source of infection? No. Patient's initial sepsis screen is negative. Risk Assessment: Do you want to hurt yourself or someone else? Patient reports no desire to harm self or others. Historical: - Allergies: 19:17 No Known Allergies; lp1 - Home Meds: 19:17 amlodipine 10 mg tab 1 tab once daily [Active]; Plavix 75 mg Oral tab 1 tab once daily lp1 [Active]; atorvastatin 40 mg Oral tab 1 tab once daily [Active]; aspirin 81 mg Oral TbEC 1 tab once daily [Active]; Metoprolol Tartrate Oral [Active]; Prilosec Oral [Active]; - PMHx: 19:17 Aneurysm; Tachycardia; lp1 - Immunization history:: Adult Immunizations up to date. - Social history:: Smoking status: Patient denies any tobacco usage or history of. Screenin:19 Abuse screen: Denies threats or abuse. Denies injuries from another. Nutritional lp1 screening: No deficits noted. Tuberculosis screening: No symptoms or risk factors identified. 21:11 Fall Risk None identified. bb Assessment: 21:11 General: Appears in no apparent distress. Behavior is calm, cooperative. Pain: Denies bb pain. Neuro: Level of Consciousness is awake, alert, obeys commands, Oriented to person, place, time, situation. Cardiovascular: Capillary refill < 3 seconds Patient's skin is warm and dry. Respiratory: Respiratory effort is even, unlabored, Respiratory pattern is regular. GI: Abdomen is non-distended. : Reports blood in urine. Derm: Skin is pink, warm \T\ dry. Musculoskeletal: Circulation, motion, and sensation intact. 21:13 Reassessment: pt verbalized understanding of and agrees to plan of care discharge bb instructions given pt ambulated with steady gait to exit accompanied by family. Vital Signs: 19:18 BP 144 / 79 RA; Pulse 94; Resp 18; Temp 98.8(TE); Pulse Ox 96% on R/A; Weight 96.16 kg; lp1 Height 5 ft. 10 in. (177.80 cm); Pain 3/10; 19:20 BP 114 / 70 LA; lp1 21:13 BP 141 / 76; Pulse 81; Resp 16 S; Pulse Ox 97% on R/A; bb 19:18 Body Mass Index 30.42 (96.16 kg, 177.80 cm) lp1 ED Course: 18:39 Patient arrived in ED. as 18:40 out of town, doctor is Private Physician. as 19:14 Triage completed. lp1 19:14 Arm band placed on. lp1 19:21 Brijesh Lees MD is Attending Physician. juliette 19:52 CT Aorta for Dissection In Process Unspecified. EDMS 20:46 Esteban Matos MD is Referral Physician. juliette 21:11 Patient has correct armband on for positive identification. Adult w/ patient. bb 21:11 No provider procedures requiring assistance completed. IV discontinued, intact, bb bleeding controlled, No redness/swelling at site. Pressure dressing applied. Administered Medications: 20:56 Drug: Rocephin (cefTRIAXone) 1 grams Route: IV; Rate: per protocol; Site: right bb antecubital; 21:05 Follow up: IV Status: Completed infusion; IV Intake: 10ml bb 20:56 Drug: LevOfloxacin 500 mg Route: PO; bb 21:11 Follow up: Response: No adverse reaction bb Intake: 21:05 IV: 10ml; Total: 10ml. bb Outcome: 20:46 Discharge ordered by . juliette 21:14 Discharged to home ambulatory, with family. mt 21:14 Condition: stable 21:14 Discharge instructions given to patient, family, Instructed on discharge instructions, follow up and referral plans. medication usage, Demonstrated understanding of instructions, follow-up care, medications, Prescriptions given X 3. 21:14 Patient left the ED. bb Signatures: Dispatcher [employer] EDMA Brijesh Lees MD MD cha Martinez, Amelia as Ballard, Brenda, RN RN Janee Bhatti, RN RN lp1
--- NOTE | 2021-03-03 20:47 | EDPHYS ---
Physician Documentation [facility] Name: Louie Lebron Age: 76 yrs Sex: Male : 1945 Arrival Date: 03/03/2021 Time: 18:39 Bed DIS13 Private MD: out of town, doctor ED Physician Brijesh Lees HPI: 03/03 19:24 This 76 yrs old Male presents to ER via Ambulatory with complaints of Urinary juliette Problem - blood. 19:24 The patient presents with urinary symptoms, hematuria, hx of aaa. Onset: The juliette symptoms/episode began/occurred just prior to arrival, today. Modifying factors: The symptoms are alleviated by nothing, the symptoms are aggravated by nothing. Associated signs and symptoms: The patient has no apparent associated signs or symptoms. Severity of symptoms: At their worst the symptoms were mild, in the emergency department the symptoms are unchanged. The patient has not experienced similar symptoms in the past. Historical: - Allergies: 19:17 No Known Allergies; lp1 - Home Meds: 19:17 amlodipine 10 mg tab 1 tab once daily [Active]; Plavix 75 mg Oral tab 1 tab once daily lp1 [Active]; atorvastatin 40 mg Oral tab 1 tab once daily [Active]; aspirin 81 mg Oral TbEC 1 tab once daily [Active]; Metoprolol Tartrate Oral [Active]; Prilosec Oral [Active]; - PMHx: 19:17 Aneurysm; Tachycardia; lp1 - Immunization history:: Adult Immunizations up to date. - Social history:: Smoking status: Patient denies any tobacco usage or history of. ROS: 19:26 Constitutional: Negative for fever, chills, and weight loss, Eyes: Negative for injury, juliette pain, redness, and discharge, ENT: Negative for injury, pain, and discharge, Neck: Negative for injury, pain, and swelling, Cardiovascular: Negative for chest pain, palpitations, and edema, Respiratory: Negative for shortness of breath, cough, wheezing, and pleuritic chest pain, Back: Negative for injury and pain, : Negative for injury, bleeding, discharge, and swelling, MS/Extremity: Negative for injury and deformity, Skin: Negative for injury, rash, and discoloration, Neuro: Negative for headache, weakness, numbness, tingling, and seizure, Psych: Negative for depression, anxiety, suicide ideation, homicidal ideation, and hallucinations, Allergy/Immunology: Negative for hives, rash, and allergies, Endocrine: Negative for neck swelling, polydipsia, polyuria, polyphagia, and marked weight changes, Hematologic/Lymphatic: Negative for swollen nodes, abnormal bleeding, and unusual bruising. 19:26 Abdomen/GI: Positive for abdominal pain, abdominal distension. 19:26 : Positive for hematuria. Exam: 19:26 Constitutional: This is a well developed, well nourished patient who is awake, alert, juliette and in no acute distress. Head/Face: Normocephalic, atraumatic. Eyes: Pupils equal round and reactive to light, extra-ocular motions intact. Lids and lashes normal. Conjunctiva and sclera are non-icteric and not injected. Cornea within normal limits. Periorbital areas with no swelling, redness, or edema. ENT: Nares patent. No nasal discharge, no septal abnormalities noted. Tympanic membranes are normal and external auditory canals are clear. Oropharynx with no redness, swelling, or masses, exudates, or evidence of obstruction, uvula midline. Mucous membranes moist. Neck: Trachea midline, no thyromegaly or masses palpated, and no cervical lymphadenopathy. Supple, full range of motion without nuchal rigidity, or vertebral point tenderness. No Meningismus. Chest/axilla: Normal chest wall appearance and motion. Nontender with no deformity. No lesions are appreciated. Cardiovascular: Regular rate and rhythm with a normal S1 and S2. No gallops, murmurs, or rubs. Normal PMI, no JVD. No pulse deficits. Respiratory: Lungs have equal breath sounds bilaterally, clear to auscultation and percussion. No rales, rhonchi or wheezes noted. No increased work of breathing, no retractions or nasal flaring. Abdomen/GI: Soft, non-tender, with normal bowel sounds. No distension or tympany. No guarding or rebound. No evidence of tenderness throughout. Back: No spinal tenderness. No costovertebral tenderness. Full range of motion. Male : Normal genitalia with no discharge or lesions. Skin: Warm, dry with normal turgor. Normal color with no rashes, no lesions, and no evidence of cellulitis. MS/ Extremity: Pulses equal, no cyanosis. Neurovascular intact. Full, normal range of motion. Neuro: Awake and alert, GCS 15, oriented to person, place, time, and situation. Cranial nerves II-XII grossly intact. Motor strength 5/5 in all extremities. Sensory grossly intact. Cerebellar exam normal. Normal gait. Psych: Awake, alert, with orientation to person, place and time. Behavior, mood, and affect are within normal limits. Vital Signs: 19:18 BP 144 / 79 RA; Pulse 94; Resp 18; Temp 98.8(TE); Pulse Ox 96% on R/A; Weight 96.16 kg; lp1 Height 5 ft. 10 in. (177.80 cm); Pain 3/10; 19:20 BP 114 / 70 LA; lp1 21:13 BP 141 / 76; Pulse 81; Resp 16 S; Pulse Ox 97% on R/A; bb 19:18 Body Mass Index 30.42 (96.16 kg, 177.80 cm) lp1 MDM: 19:21 Patient medically screened. [facility] 19:28 Differential diagnosis: UTI, AAA, appendicitis, coronary artery disease. Data reviewed: [facility] vital signs, nurses notes, lab test result(s), radiologic studies. Data interpreted: scale technician: rate is 94 beats/min, rhythm is regular. Counseling: I had a detailed discussion with the patient and/or guardian regarding: the historical points, exam findings, and any diagnostic results supporting the discharge/admit diagnosis, lab results, radiology results. 20:49 ED course: bisi longoria to follow up , no changes , stay on all meds. [facility] 03/03 19:24 Order name: CBC with Diff [facility] 03/03 19:24 Order name: Comprehensive Metabolic Panel [facility] 03/03 19:24 Order name: Lipase [facility] 03/03 19:24 Order name: Urine Culture [facility] 03/03 19:24 Order name: CBC with Automated Diff; Complete Time: 20:36 [facility] 03/03 19:24 Order name: Comprehensive Metabolic Panel; Complete Time: 20:36 [facility] 03/03 19:24 Order name: CT Aorta for Dissection; Complete Time: 20:36 [facility] 03/03 19:24 Order name: Lipase; Complete Time: 20:36 [facility] 03/03 20:43 Order name: Urine Dipstick-Ancillary [facility] 03/03 20:58 Order name: Urine Microscopic Only tt3 Administered Medications: 20:56 Drug: Rocephin (cefTRIAXone) 1 grams Route: IV; Rate: per protocol; Site: right bb antecubital; 21:05 Follow up: IV Status: Completed infusion; IV Intake: 10ml bb 20:56 Drug: LevOfloxacin 500 mg Route: PO; bb 21:11 Follow up: Response: No adverse reaction bb Disposition Summary: 03/03/21 20:46 Discharge Ordered Location: Home juliette Problem: new juliette Symptoms: have improved juliette Condition: Stable juliette Diagnosis - Abdominal aortic aneurysm, without rupture juliette - Hematuria, unspecified juliette - UTI/ Urinary tract infection, site not specified juliette Followup: juliette - With: Private Physician - When: 2 - 3 days - Reason: Recheck today's complaints, Continuance of care, Re-evaluation by your physician Followup: juliette - With: Esteban Matos MD - When: 2 - 3 days - Reason: Recheck today's complaints, Continuance of care, Re-evaluation by your physician Discharge Instructions: - Discharge Summary Sheet juliette - Hematuria, Adult juliette - Urinary Tract Infection, Adult juliette - Urinary Tract Infection, Adult, [id number] juliette - Abdominal Aortic Aneurysm, Siss-ia-Wggy [facility] Forms: - Medication Reconciliation Form [facility] - Thank You Letter [facility] - Antibiotic Education [facility] - Prescription Opioid Use [facility] Prescriptions: - tamsulosin 0.4 mg Oral capsule - take 1 capsule by ORAL route once daily 1/2 hour following the same meal each [facility] day; 10 capsule; Refills: 0, Product Selection Permitted - levofloxacin 250 mg Oral Tablet - take 1 tablet by ORAL route once daily; 7 tablet; Refills: 0, Product Selection [facility] Permitted - Bactrim DS 800-160 mg Oral Tablet - take 1 tablet by ORAL route every 12 hours for 5 days; 10 tablet; Refills: 0, [facility] Product Selection Permitted Signatures: Dispatcher [employer] Brijesh Baldwin MD MD cha Ballard, Brenda, RN RN Janee Bhatti RN RN lp1
[2021-03-03] MEDS ORDERED: CEFTRIAXONE/SWI 1gm 1 GM/10 ML SYR ONE (21:15)
[2021-03-03 21:22] VITALS: TEMP 98.8
[2021-03-03] MEDS ORDERED: levoFLOXacin 500 MG TAB ONE (21:23)
[2021-03-03 21:26] VITALS: BP 141/76; O2SAT 97
[2021-03-03 21:36] LABS: Urine Bacteria <20 /HPF (NONE SEEN); Urine RBC TNTC /HPF (NONE SEEN)
== END 2021-03-03 21:14 | disposition home or self-care (01) ==
LOC: ER 18:27
DX: N39.0 Urinary tract infection, site not specified (principal); I71.4 Abdominal aortic aneurysm, without rupture; Z79.01 Long term (current) use of anticoagulants; Z79.82 Long term (current) use of aspirin
CPT/HCPCS: 87088; 85025; 87086; 36415; 82565; 83690; 80053; 71275; 74175; 96374; 99283; Q9967; J0696; 81003; 81015